=== PATIENT | female | born 1975 | race Caucasian/White ===

== ENCOUNTER 2016-12-31 12:05 | Emergency (ER) | payer OTHER ==
[~2016-12-31] VITALS: Ht 160 cm; Wt 93.9 kg
[2016-12-31 12:10] VITALS: BP 138/85
--- NOTE | 2016-12-31 13:11 | PHYS DOC ---
Past Medical History Past Medical History: Other Additional Past Medical Histor: GEST DM Past Surgical History: , Tubal ligation Alcohol Use: None Drug Use: None Adult General Chief Complaint Chief Complaint: LOWER EXT PAIN HPI HPI Patient is a 41 year old female who presents with right calf pain that began yesterday. Patient stated the pain is worse on ambulation. Patient states he was seen by the PCP who sent her to the ED for evaluation for possible blood clot. Patient denies any fever. Denies any chest pain or shortness of breath. Denies any significant medical history apart from gestational diabetes a couple years ago when she was with twins. Patient denies any hormone use. Denies any recent hospitalizations, denies any recent air or long distance Travel. Denies any numbness or tingling to the right lower extremity. Denies any injury. PCP Dr. Mesa Review of Systems Review of Systems Constitutional: Denies fever or chills [] Eyes: Denies change in visual acuity, redness, or eye pain [] HENT: Denies nasal congestion or sore throat [] Respiratory: Denies cough or shortness of breath [] Cardiovascular: No additional information not addressed in HPI [] GI: Denies abdominal pain, nausea, vomiting, bloody stools or diarrhea [] : Denies dysuria or hematuria [] Musculoskeletal: right calf pain Integument: Denies rash or skin lesions [] Neurologic: Denies headache, focal weakness or sensory changes [] Endocrine: Denies polyuria or polydipsia [] Current Medications Current Medications Current Medications Medications (Trade) Dose Ordered Sig/Herbie Start Time Stop Time Status Last Admin Dose Admin Acetaminophen/ Hydrocodone Bitart (Lortab 5/325) 1 tab 1X ONCE 12/31/16 13:30 12/31/16 13:31 DC 12/31/16 13:18 1 TAB Cyclobenzaprine HCl (Flexeril) 10 mg 1X ONCE 12/31/16 13:30 12/31/16 13:31 DC 12/31/16 13:18 10 MG Allergies Allergies Allergies Coded Allergies Type Severity Reaction Last Updated Verified Penicillins Allergy Severe Anaphylaxis 12/31/16 Yes latex Allergy Intermediate 12/31/16 Yes milk Allergy Intermediate 12/31/16 Yes Physical Exam Physical Exam Constitutional: Well developed, well nourished, no acute distress, non-toxic appearance. [] HENT: Normocephalic, atraumatic, bilateral external ears normal, oropharynx moist, no oral exudates, nose normal. [] Eyes: PERRLA, EOMI, conjunctiva normal, no discharge. [] Neck: Normal range of motion, no tenderness, supple, no stridor. [] Cardiovascular:Heart rate regular rhythm, no murmur [] Lungs & Thorax: Bilateral breath sounds clear to auscultation [] Abdomen: Bowel sounds normal, soft, no tenderness, no masses, no pulsatile masses. [] Skin: Warm, dry, no erythema, no rash. [] Back: No tenderness, no CVA tenderness. [] Extremities: Right calf with no obvious edema or ecchymosis. No tenderness on palpation of the right calf but positive Homans sign to the right lower extremity. +2 right pedal pulse. Cap refill less than 2 seconds the right toes. Sensation intact to the right lower extremity. Neurologic: Alert and oriented X 3, normal motor function, normal sensory function, no focal deficits noted. [] Psychologic: Affect normal, judgement normal, mood normal. [] Current Patient Data Vital Signs Vital Signs Date Time Temp Pulse Resp B/P (MAP) Pulse Ox O2 Delivery O2 Flow Rate FiO2 12/31/16 13:18 16 Room Air 12/31/16 12:10 98.1 60 100 98.1 EKG EKG [] Radiology/Procedures Radiology/Procedures [] Course & Med Decision Making Course & Med Decision Making Pertinent Labs and Imaging studies reviewed. (See chart for details) Patient is in the ED with a right calf pain since yesterday. No known injury. She was sent to the ED to be evaluated for DVT by the PCP. Right lowr extremity venous Doppler interpreted by radiologist is negative for any acute findings. Results are provided to patient. She was reassured. She was discharged with Robaxin, gabapentin and naproxen. Ice elevation encouraged. Follow-up with PCP as soon as she can. Dragon Disclaimer Dragon Disclaimer This electronic medical record was generated, in whole or in part, using a voice recognition dictation system. Departure Departure Impression: Primary Impression: Right calf pain Disposition: 01 HOME, SELF-CARE Condition: STABLE Referrals: NI LARA APRN (PCP) RONALD MESA MD follow up with your doctor as soon as you can Patient Instructions: Musculoskeletal Pain Additional Instructions: You were seen for right calf pain. Your venous Doppler of the right lower extremity was negative for any acute findings. Follow-up with your own doctor as soon as possible. Take the prescribed pain medicine as needed for pain. Scripts Gabapentin (GABAPENTIN) 300 Mg Capsule 300 MG PO TID, #30 CAP Prov: TRINIDAD BRUNO APRN 12/31/16 Methocarbamol (ROBAXIN) 500 Mg Tablet 1 TAB PO TID, #30 TAB Prov: TRINIDAD BRUNO APRN 12/31/16 Naproxen (NAPROXEN) 500 Mg Tablet. 1 TAB PO BID, #60 TAB 2 Refills Prov: TRINIDAD BRUNO APRN 12/31/16 TRINIDAD BRUNO APRN Dec 31, 2016 13:11
[2016-12-31] MEDS ORDERED: CYCLOBENZAPRINE 10 MG TABLET. PO ONE (13:30)
[2016-12-31] MEDS ORDERED: HYDROcodone/APAP 5/325MG 1 TAB TABLET PO ONE (13:30)
--- NOTE | 2016-12-31 14:16 | RAD ---
Right lower extremity venous ultrasound, 12/31/2016 : History: Right leg pain Duplex evaluation including grayscale, color flow and spectral Doppler analysis was performed. The femoral and popliteal veins show no filling defects to suggest DVT. The visualized deep veins in the right calf are unremarkable. IMPRESSION: There is no sonographic evidence of deep vein thrombosis in the right lower extremity
[2016-12-31] MEDS ORDERED: METH-37 PO (14:31)
[2016-12-31] MEDS ORDERED: NAPR500T8 PO (14:31)
[2016-12-31] MEDS ORDERED: GABA-586 PO (14:31)
== END 2016-12-31 14:39 | disposition home or self-care (01) ==
LOC: ER 12:05
DX: M79.661 Pain in right lower leg (principal); E11.9 Type 2 diabetes mellitus without complications; Z88.0 Allergy status to penicillin; Z91.040 Latex allergy status; Z91.011 Allergy to milk products; Z98.51 Tubal ligation status; X58.XXXA Exposure to other specified factors, initial encounter; Y93.89 Activity, other specified; Y99.8 Other external cause status; Y92.89 Other specified places as the place of occurrence of the external cause
CPT/HCPCS: 93971; 99284-25

== ENCOUNTER → 2017-01-05 | Outpatient (CLI) | payer OTHER ==
[2016-12-31 12:10] VITALS: BP 138/85
[~2017-01-05] MED LIST: GABA-586 PO; METH-37 PO; NAPR500T8 PO
--- NOTE | 2017-01-05 11:51 | KCIC ---
Limited right knee ultrasound dated 01/05/2017. No comparison available. CLINICAL INDICATION: Right knee pain. FINDINGS: Sonographic imaging was performed over the posterior right knee The area of pain. There is a complex popliteal cyst that measures up to 3.6 cm craniocaudal dimension. No additional soft tissue abnormality. IMPRESSION: Small complex popliteal cyst. Electronically signed by: Kenyon Alejandro MD (01/05/2017 11:47 AM) [facility]
== END | disposition home or self-care (01) ==
LOC: KCIC US 10:52
PROVIDERS: ATTEND Nurse Practitioner Family
DX: M71.21 Synovial cyst of popliteal space [Baker], right knee (principal)
CPT/HCPCS: 76881

== ENCOUNTER 2019-05-03 10:14 | Emergency (ER) | payer OTHER ==
[~2019-05-03] VITALS: Ht 157.5 cm; Wt 91.6 kg
[~2019-05-03 10:14] MED LIST changes: -GABA-586 PO; +GABA300C18 PO
[2019-05-03 10:24] VITALS: BP 134/74
[2019-05-03] MEDS ORDERED: diphenhydrAMINE HCL 25 MG CAPSULE PO ONE (11:00)
[2019-05-03] MEDS ORDERED: DEXAMETHASONE SOD PHOS 20 MG/5 ML VIAL. PO ONE (11:00)
[2019-05-03] MEDS ORDERED: DOXY100T PO (11:27)
--- NOTE | 2019-05-03 11:28 | PHYS DOC ---
Past Medical History Past Medical History: Hypothyroid, Other Additional Past Medical Histor: GEST DM, ECZEMA Past Surgical History: , Tubal ligation Alcohol Use: None Drug Use: None Adult General Chief Complaint Chief Complaint: ALLERGIC REACTION HPI HPI Patient is a 44 year old female who presents to the emergency department with complaints of itching all over and hive-like rash on her lower extremities after taking clindamycin for the last 3 days. Patient states it also feels like she is having hard time swallowing at times. She denies any shortness of breath, wheezing, nausea, vomiting, chest pain, palpitations or fever. Patient states she was prescribed clindamycin by her dentist for a right upper dental infection. Pt's LMP was last week, she reports hx of BTL and denies . All other ROS is neg unless otherwise noted in HPI. Review of Systems Review of Systems See Above Current Medications Current Medications Current Medications Medications (Trade) Dose Ordered Sig/Herbie Start Time Stop Time Status Last Admin Dose Admin Dexamethasone Sodium Phosphate (Decadron) 10 mg 1X ONCE 05/03/19 11:00 05/03/19 11:01 DC 05/03/19 11:26 10 MG Diphenhydramine HCl (Benadryl) 50 mg 1X ONCE 05/03/19 11:00 05/03/19 11:01 DC 05/03/19 11:26 50 MG Allergies Allergies Allergies Coded Allergies Type Severity Reaction Last Updated Verified Penicillins Allergy Severe Anaphylaxis 12/31/16 Yes latex Allergy Intermediate 12/31/16 Yes milk Allergy Intermediate 12/31/16 Yes Physical Exam Physical Exam See Above Constitutional: Well developed, well nourished, no acute distress, non-toxic appearance. [] HENT: Normocephalic, atraumatic, bilateral external ears normal, oropharynx moist, no oral exudates, nose normal; R upper dental infection with gingival edema and erythema, no visible abscess [] Eyes: PERRLA, EOMI, conjunctiva normal, no discharge. [] Neck: Normal range of motion, no tenderness, supple, no stridor. [] Cardiovascular:Heart rate regular rhythm, no murmur [] Lungs & Thorax: Bilateral breath sounds clear to auscultation [] Skin: Warm, dry, Hives noted to bilateral upper legs and lower abdomen Back: No tenderness Extremities: No cyanosis, ROM intact, no edema. [] Neurologic: Alert and oriented X 3, no focal deficits noted. [] Psychologic: Affect normal, judgement normal, mood normal. [] Current Patient Data Vital Signs Vital Signs Date Time Temp Pulse Resp B/P (MAP) Pulse Ox O2 Delivery O2 Flow Rate FiO2 05/03/19 10:24 98.0 81 16 134/74 (94) 98 Room Air 98.0 EKG EKG [] Radiology/Procedures Radiology/Procedures [] Course & Med Decision Making Course & Med Decision Making Pertinent Labs and Imaging studies reviewed. (See chart for details) Patient is a 44-year-old female who presented to the emergency room with concern s of an allergic reaction clindamycin. On exam patient is noted to have a right upper dental infection that she has been taking the clindamycin for. Patient was given 50 mg of by mouth Benadryl and 10 mg of by mouth Decadron while in the emergency department. Prescription written for doxycycline 100 mg by mouth twice a day 5 days. Patient instructed to call her dentist in notify them of the allergy to clindamycin and a new prescription for doxycycline. Patient verbalized an understanding of home care, medications, follow-up, and return to ED instructions and was in agreement with the plan of care. [] Dragon Disclaimer Dragon Disclaimer This electronic medical record was generated, in whole or in part, using a voice recognition dictation system. Departure Departure Impression: Primary Impression: Allergic reaction caused by a drug Additional Impression: Infected dental caries Disposition: HOME, SELF-CARE Condition: STABLE Referrals: NI LARA APRN (PCP) Patient Instructions: Dental Caries, Drug Allergy, Klne-[id number] Additional Instructions: Stop taking the clindamycin was prescribed. Fill the prescription that was provided to you for doxycycline. You can take Benadryl every 6 hours at home as needed for itching. Return to the ER if symptoms worsen. Call your dentist in notify them of your allergic reaction and need for follow-up. Scripts Doxycycline Hyclate (DOXYCYCLINE HYCLATE) 100 Mg Tablet 1 TAB PO BID for 5 Days, #10 TAB 0 Refills Prov: ADRIANA RICH APRN 05/03/19 Problem Qualifiers Primary Impression: Allergic reaction caused by a drug Encounter type: initial encounter Qualified Codes: T78.40XA - Allergy, unspecified, initial encounter ADRIANA RICH CLAIM TECHNICIAN May 03, 2019 11:27
[2019-05-04] MEDS ORDERED: LEVO50TA PO (20:45)
[2019-05-05] MEDS ORDERED: PANT40TA77 PO (12:21)
== END 2019-05-03 11:36 | disposition home or self-care (01) ==
LOC: ER 10:14
DX: T36.8X5A Adverse effect of other systemic antibiotics, initial encounter (principal); K04.7 Periapical abscess without sinus; E03.9 Hypothyroidism, unspecified; Z88.0 Allergy status to penicillin; Z91.040 Latex allergy status; Z91.011 Allergy to milk products; Y92.89 Other specified places as the place of occurrence of the external cause
CPT/HCPCS: 99283; J1100; Q0163

== ENCOUNTER 2019-05-04 14:45 | Inpatient (IN) | payer OTHER ==
[~2019-05-04] VITALS: Ht 157.5 cm; Wt 98.2 kg
[~2019-05-04 14:45] MED LIST changes: +DOXY100T PO
[2019-05-04] MEDS ORDERED: IV NORMAL SALINE 1000ML BAG 1,000 ML IV SCH (15:03)
[2019-05-04] MEDS ORDERED: ONDANSETRON PF 4 MG/2 ML VIAL. IV ONE (15:15)
[2019-05-04] MEDS ORDERED: KETOROLAC 30 MG/ML VIAL. IVP ONE (15:15)
[2019-05-04 15:17] LABS: BASO # 0.1 x10^3/uL (0.0-0.2); BASO % 0 % (0-3); EOS % 0 % (0-3); HEMATOCRIT 34.3 % (36.0-47.0); LYMPH # 2.2 x10^3/uL (1.0-4.8); LYMPH % 16 % (24-48); MEAN CORPUSCULAR HEMOGLOBIN 24 pg (25-35); MEAN CORPUSCULAR HGB CONC 32 g/dL (31-37); MEAN CORPUSCULAR VOLUME 73 fL (79-100); MONO # 0.6 x10^3/uL (0.0-1.1); MONO % 5 % (0-9); NEUT # 11.1 x10^3/uL (1.8-7.7); NEUT % 79 % (31-73); PLATELET COUNT 412 x10^3/uL (140-400); RED BLOOD COUNT 4.69 x10^6/uL (3.50-5.40); RED CELL DISTRIBUTION WIDTH 15.9 % (11.5-14.5)
[2019-05-04 15:27] LABS: CALCIUM 8.9 mg/dL (8.5-10.1); CREATININE 0.8 mg/dL (0.6-1.0); GFR 78.7; POTASSIUM 3.3 mmol/L (3.5-5.1)
--- NOTE | 2019-05-04 15:27 | RAD ---
PORTABLE CHEST 1V History: Chest pain Comparison: None. Findings: Single view of the chest is submitted. There is no infiltrate, pneumothorax, or effusion. The pericardial cardiac silhouette is within normal limits in size. Impression: 1. There is no radiographic evidence of acute cardiopulmonary disease. Electronically signed by: Pérez Salazar MD (05/04/2019 3:24 PM) [facility]
[2019-05-04 15:33] LABS: ALBUMIN 3.7 g/dL (3.4-5.0); ALBUMIN/GLOBULIN RATIO 0.8 (1.0-1.7); MAGNESIUM 1.8 mg/dL (1.8-2.4); TOTAL BILIRUBIN 0.4 mg/dL (0.2-1.0); TOTAL PROTEIN 8.3 g/dL (6.4-8.2)
--- NOTE | 2019-05-04 17:27 | PHYS DOC ---
Past Medical History Past Medical History: Hypothyroid, Other Additional Past Medical Histor: GEST DM, ECZEMA Past Surgical History: , Tubal ligation Alcohol Use: None Drug Use: None Adult General Chief Complaint Chief Complaint: CHEST WALL PAIN HPI HPI Patient is a 44-year-old female who presents with complaint of anterior chest discomfort as well as epigastric discomfort that started earlier today. She describes pain as sharp and stabbing in nature and states that pain is worsened with exertion. She rates pain at a 9 out of 10. She does report some nausea but is had no vomiting. Patient was seen here last night and the emergency room and had similar symptoms and had been discharged home. [] Review of Systems Review of Systems Constitutional: Denies fever or chills [] Respiratory: Denies cough or shortness of breath [] Cardiovascular: No additional information not addressed in HPI [] GI: [place] of epigastric discomfort with nausea. Denies vomiting or diarrhea [] Musculoskeletal: Denies back pain or joint pain [] Integument: Denies rash or skin lesions [] Neurologic: Denies headache, focal weakness or sensory changes [] All other systems were reviewed and found to be within normal limits, except as documented in this note. Current Medications Current Medications Current Medications Medications (Trade) Dose Ordered Sig/Herbie Start Time Stop Time Status Last Admin Dose Admin Ketorolac Tromethamine (Toradol 30mg Vial) 30 mg 1X ONCE 05/04/19 15:15 05/04/19 15:16 DC 05/04/19 15:23 30 MG Ondansetron HCl (Zofran) 4 mg 1X ONCE 05/04/19 15:15 05/04/19 15:16 DC 05/04/19 15:21 4 MG Pantoprazole Sodium (PROTONIX VIAL for IV PUSH) 40 mg 1X ONCE 05/04/19 18:00 05/04/19 18:01 DC Sodium Chloride 1,000 ml @ 1,000 mls/hr Q1H 05/04/19 15:03 05/04/19 16:02 DC 05/04/19 15:24 1,000 MLS/HR Allergies Allergies Allergies Coded Allergies Type Severity Reaction Last Updated Verified Penicillins Allergy Severe Anaphylaxis 12/31/16 Yes latex Allergy Intermediate 12/31/16 Yes milk Allergy Intermediate 12/31/16 Yes Physical Exam Physical Exam Constitutional: Well developed, well nourished, in mild distress, non-toxic appearance. [] HENT: Normocephalic, atraumatic, bilateral external ears normal, oropharynx moist, no oral exudates, nose normal. [] Eyes: PERRLA, EOMI, conjunctiva normal, no discharge. [] Neck: Normal range of motion, no tenderness, supple. [] Cardiovascular: Regular rate and rhythm[] Lungs & Thorax: Bilateral breath sounds clear to auscultation [] Abdomen: Bowel sounds normal, soft, no tenderness. [] Skin: Warm, dry, no erythema, no rash. [] Extremities: No tenderness, no cyanosis, no clubbing, ROM intact. [] Neurologic: Alert and oriented X 3, no focal deficits noted. [] Current Patient Data Vital Signs Vital Signs Date Time Temp Pulse Resp B/P (MAP) Pulse Ox O2 Delivery O2 Flow Rate FiO2 05/04/19 14:48 97.5 74 16 132/87 (102) 100 Room Air 97.5 Lab Values Laboratory Tests Test 05/04/19 15:05 White Blood Count 14.0 x10^3/uL (4.0-11.0) H Red Blood Count 4.69 x10^6/uL (3.50-5.40) Hemoglobin 11.0 g/dL (12.0-15.5) L Hematocrit 34.3 % (36.0-47.0) L Mean Corpuscular Volume 73 fL (79-100) L Mean Corpuscular Hemoglobin 24 pg (25-35) L Mean Corpuscular Hemoglobin Concent 32 g/dL (31-37) Red Cell Distribution Width 15.9 % (11.5-14.5) H Platelet Count 412 x10^3/uL (140-400) H Neutrophils (%) (Auto) 79 % (31-73) H Lymphocytes (%) (Auto) 16 % (24-48) L Monocytes (%) (Auto) 5 % (0-9) Eosinophils (%) (Auto) 0 % (0-3) Basophils (%) (Auto) 0 % (0-3) Neutrophils # (Auto) 11.1 x10^3/uL (1.8-7.7) H Lymphocytes # (Auto) 2.2 x10^3/uL (1.0-4.8) Monocytes # (Auto) 0.6 x10^3/uL (0.0-1.1) Eosinophils # (Auto) 0.0 x10^3/uL (0.0-0.7) Basophils # (Auto) 0.1 x10^3/uL (0.0-0.2) Sodium Level 136 mmol/L (136-145) Potassium Level 3.3 mmol/L (3.5-5.1) L Chloride Level 99 mmol/L (98-107) Carbon Dioxide Level 28 mmol/L (21-32) Anion Gap 9 (6-14) Blood Urea Nitrogen 11 mg/dL (7-20) Creatinine 0.8 mg/dL (0.6-1.0) Estimated GFR (Cockcroft-Gault) 78.7 BUN/Creatinine Ratio 14 (6-20) Glucose Level 139 mg/dL (70-99) H Calcium Level 8.9 mg/dL (8.5-10.1) Magnesium Level 1.8 mg/dL (1.8-2.4) Total Bilirubin 0.4 mg/dL (0.2-1.0) Aspartate Amino Transferase (AST) 46 U/L (15-37) H Alanine Aminotransferase (ALT) 66 U/L (14-59) H Alkaline Phosphatase 62 U/L (46-116) Troponin I Quantitative < 0.017 ng/mL (0.000-0.055) GM-Ydm-N-Type Natriuretic Peptide 129 pg/mL (0-124) H Total Protein 8.3 g/dL (6.4-8.2) H Albumin 3.7 g/dL (3.4-5.0) Albumin/Globulin Ratio 0.8 (1.0-1.7) L Lipase 68 U/L (73-393) L Laboratory Tests 05/04/19 15:05 Laboratory Tests 05/04/19 15:05 EKG EKG [] Interpretation Time: EKG demonstrates normal sinus rhythm with rate of 73. There are nonspecific ST/T-wave changes Radiology/Procedures Radiology/Procedures [] Impressions: PROCEDURE: PORTABLE CHEST 1V PORTABLE CHEST 1V History: Chest pain Comparison: None. Findings: Single view of the chest is submitted. There is no infiltrate, pneumothorax, or effusion. The pericardial cardiac silhouette is within normal limits in size. Impression: 1. There is no radiographic evidence of acute cardiopulmonary disease. Electronically signed by: Pérez Salazar MD (05/04/2019 3:24 PM) [facility] Course & Med Decision Making Course & Med Decision Making Pertinent Labs and Imaging studies reviewed. (See chart for details) [] Dragon Disclaimer Dragon Disclaimer This electronic medical record was generated, in whole or in part, using a voice recognition dictation system. Departure Departure Impression: Primary Impression: Chest pain Disposition: ADMITTED INPATIENT Admitting Physician: MIGUEL A (Dr. Burns) Condition: IMPROVED Referrals: NI LARA APRN (PCP) Problem Qualifiers Primary Impression: Chest pain Chest pain type: unspecified Qualified Codes: R07.9 - Chest pain, unspecified YESIKA ROSS Jr. DO May 04, 2019 17:27
[2019-05-04] MEDS ORDERED: PANTOPRAZOLE IV PUSH 40 MG VIAL. IVP ONE (18:00)
--- NOTE | 2019-05-04 18:00 | PDOC1 ---
History and Physical Date of Admission Date of Admission DATE: 05/04/19 TIME: 18:00 Identification/Chief Complaint Chief Complaint Chest pain Source Source: Patient History of Present Illness History of Present Illness Ms Taylor is a 44-year-old female w/ PMHx Hypothyroid, eczema, gestational diabetes who presents with complaint of anterior chest discomfort as well as epigastric discomfort that started earlier today. She describes pain as sharp and stabbing in nature and states that pain is worsened with exertion. She rates pain at a 9 out of 10. She does report some nausea and decided to come to the ED when she started vomiting. Patient was seen here last night and the emergency room and had been treated for a completely different problem, she had noted a diffuse urticarial rash after she had been taking a few doses of clindamycin prescribed by her dentist. She was given a script for doxycycline and high dose steroids and discharged home. She has also been taking NSAIDs, ibuprofen for menstrual pains and notes her stools have been darker recently. She is worried because her father at age 48 of early CAD, he also had DM and HTN. In ED had EKG that was NSR with non-specific ST segmental changes. Glucose 139. WBC 14K, Hb 11 with MCV 73, K 3.3 and mild elevation in her AST and ALT. Lipase WNL. CXR negative. She is being admitted for further dx and treatment. Past Medical History Cardiovascular: No pertinent hx Pulmonary: No pertinent hx GI: No pertinent hx Heme/Onc: No pertinent hx Hepatobiliary: No pertinent hx Psych: No pertinent hx Rheumatologic: No pertinent hx Infectious disease: No pertinent hx ENT: No pertinent hx Renal/: No pertinent hx Endocrine: Hypothyroidism Dermatology: Eczema Grav: 3 Para: 4 Past Surgical History Past Surgical History: , Tubal Ligation Family History Family History: Diabetes, High Cholestrol, Hypertension Social History Smoke: No ALCOHOL: none Drugs: None Current Problem List Problem List Problems Medical Problems: (1) Chest pain Status: Acute Current Medications Current Medications Current Medications Sodium Chloride 1,000 ml @ 1,000 mls/hr Q1H IV Last administered on 05/04/19at 15:24; Start 05/04/19 at 15:03; Stop 05/04/19 at 16:02; Status DC Ketorolac Tromethamine (Toradol 30mg Vial) 30 mg 1X ONCE IVP Last administered on 05/04/19at 15:23; Start 05/04/19 at 15:15; Stop 05/04/19 at 15:16; Status DC Ondansetron HCl (Zofran) 4 mg 1X ONCE IV Last administered on 05/04/19at 15:21; Start 05/04/19 at 15:15; Stop 05/04/19 at 15:16; Status DC Active Scripts Active Doxycycline Hyclate 100 Mg Tablet 1 Tab PO BID 5 Days Gabapentin (Gabapentin) 300 Mg Capsule 300 Mg PO TID Robaxin (Methocarbamol) 500 Mg Tablet 1 Tab PO TID Naproxen 500 Mg Tablet.dr 1 Tab PO BID Allergies Allergies: Coded Allergies: Penicillins (Verified Allergy, Severe, Anaphylaxis, 12/31/16) latex (Verified Allergy, Intermediate, 12/31/16) milk (Verified Allergy, Intermediate, 12/31/16) ROS General: YES: Fatigue, Malaise; No: Chills, Night Sweats, Appetite, Other PSYCHOLOGICAL ROS: YES: Anxiety; No: Behavioral Disorder, Concentration difficultie, Decreased libido, Depression, Disorientation, Hallucinations, Hostility, Irritablity, Memory difficulties, Mood Swings, Obsessive thoughts, Physical abuse, Sexual abuse, Sleep disturbances, Suicidal ideation, Other Eyes: No Blurry vision, No Decreased vision, No Double vision, No Dry eyes, No Excessive tearing, No Eye Pain, No Itchy Eyes, No Loss of vision, No Photophobia, No Scotomata, No Uses contacts, No Uses glasses, No Other HEENT: No: Heacaches, Visual Changes, Hearing change, Nasal congestion, Nasal discharge, Oral lesions, Sinus pain, Sore Throat, Epistaxis, Sneezing, Snoring, Tinnitus, Vertigo, Vocal changes, Other ALLERGY AND IMMUNOLOGY: No: Hives, Insect Bite Sensitivity, Itchy/Watery Eyes, Nasal Congestion, Post Nasal Drip, Seasonal Allergies, Other Hematological and Lymphatic: No: Bleeding Problems, Blood Clots, Blood Transfusions, Brusing, Night Sweats, Pallor, Swollen Lymph Nodes, Other ENDOCRINE: No: Breast Changes, Galactorrhea, Hair Pattern Changes, Hot Flashes, Malaise/lethargy, Mood Swings, Palpitations, Polydipsia/polyuria, Skin Changes, Temperature Intolerance, Unexpected Weight Changes, Other Breast: No New/Changing Breast Lumps, No Nipple changes, No Nipple discharge, No Other Respiratory: No: Cough, Hemoptysis, Orthopnea, Pleuritic Pain, Shortness of breath, SOB with excertion, Sputum Changes, Stridor, Tachypnea, Wheezing, Other Cardiovascular: yes Chest Pain; No Palpitations, No Orthopnea, No Paroxysmal Noc. Dyspnea, No Edema, No Lt Headedness, No Other Gastrointestinal: Yes Nausea, Yes Vomiting, Yes Abdominal Pain; No Diarrhea, No Constipation, No Melena, No Hematochezia, No Other Genitourinary: No Dysuria, No Frequency, No Incontinence, No Hematuria, No Retention, No Discharge, No Urgency, No Pain, No Flank Pain, No Other, No , No , No , No , No , No , No Musculoskeletal: No Gait Disturbance, No Joint Pain, No Joint Stiffness, No Joint Swelling, No Muscle Pain, No Muscular Weakness, No Pain In:, No Swelling In:, No Other Neurological: No Behavorial Changes, No Bowel/Bladder ControlChng, No Confusion, No Dizziness, No Gait Disturbance, No Headaches, No Impaired Coord/balance, No Memory Loss, No Numbness/Tingling, No Seizures, No Speech Problems, No Tremors, No Visual Changes, No Weakness, No Other Skin: Yes Dry Skin, Yes Eczema, Yes Rash; No Hair Changes, No Lumps, No Mole Changes, No Mottling, No Nail Changes, No Pruritus, No Skin Lesion Changes, No Other, No Acne Physical Exam General: Alert, Oriented X3, Cooperative, mild distress HEENT: Atraumatic, PERRLA, EOMI, Mucous membr. moist/pink Lungs: Clear to auscultation, Normal air movement Heart: S1S2, RRR, no thrills, no rubs, no gallops, no murmurs Abdomen: Normal bowel sounds, Soft, No hepatosplenomegaly, No masses, Other (epigastric tenderness) Extremities: No clubbing, No cyanosis, No edema, Normal pulses, No tenderness/swelling Skin: No rashes, No breakdown, No significant lesion Neuro: Normal gait, Normal speech, Strength at 5/5 X4 ext, Normal tone, Sensation intact, Cranial nerves 3-12 NL, Reflexes 2+ Psych/Mental Status: Mental status NL, Mood NL Vitals Vitals Vital Signs Date Time Temp Pulse Resp B/P (MAP) Pulse Ox O2 Delivery O2 Flow Rate FiO2 05/04/19 14:48 97.5 74 16 132/87 (102) 100 Room Air 97.5 Labs Labs Laboratory Tests Test 05/04/19 15:05 White Blood Count 14.0 x10^3/uL (4.0-11.0) Red Blood Count 4.69 x10^6/uL (3.50-5.40) Hemoglobin 11.0 g/dL (12.0-15.5) Hematocrit 34.3 % (36.0-47.0) Mean Corpuscular Volume 73 fL (79-100) Mean Corpuscular Hemoglobin 24 pg (25-35) Mean Corpuscular Hemoglobin Concent 32 g/dL (31-37) Red Cell Distribution Width 15.9 % (11.5-14.5) Platelet Count 412 x10^3/uL (140-400) Neutrophils (%) (Auto) 79 % (31-73) Lymphocytes (%) (Auto) 16 % (24-48) Monocytes (%) (Auto) 5 % (0-9) Eosinophils (%) (Auto) 0 % (0-3) Basophils (%) (Auto) 0 % (0-3) Neutrophils # (Auto) 11.1 x10^3/uL (1.8-7.7) Lymphocytes # (Auto) 2.2 x10^3/uL (1.0-4.8) Monocytes # (Auto) 0.6 x10^3/uL (0.0-1.1) Eosinophils # (Auto) 0.0 x10^3/uL (0.0-0.7) Basophils # (Auto) 0.1 x10^3/uL (0.0-0.2) Sodium Level 136 mmol/L (136-145) Potassium Level 3.3 mmol/L (3.5-5.1) Chloride Level 99 mmol/L (98-107) Carbon Dioxide Level 28 mmol/L (21-32) Anion Gap 9 (6-14) Blood Urea Nitrogen 11 mg/dL (7-20) Creatinine 0.8 mg/dL (0.6-1.0) Estimated GFR (Cockcroft-Gault) 78.7 BUN/Creatinine Ratio 14 (6-20) Glucose Level 139 mg/dL (70-99) Calcium Level 8.9 mg/dL (8.5-10.1) Magnesium Level 1.8 mg/dL (1.8-2.4) Total Bilirubin 0.4 mg/dL (0.2-1.0) Aspartate Amino Transf (AST/SGOT) 46 U/L (15-37) Alanine Aminotransferase (ALT/SGPT) 66 U/L (14-59) Alkaline Phosphatase 62 U/L (46-116) Troponin I Quantitative < 0.017 ng/mL (0.000-0.055) XD-Dtn-M-Type Natriuretic Peptide 129 pg/mL (0-124) Total Protein 8.3 g/dL (6.4-8.2) Albumin 3.7 g/dL (3.4-5.0) Albumin/Globulin Ratio 0.8 (1.0-1.7) Lipase 68 U/L (73-393) Laboratory Tests Test 05/04/19 15:05 White Blood Count 14.0 x10^3/uL (4.0-11.0) Red Blood Count 4.69 x10^6/uL (3.50-5.40) Hemoglobin 11.0 g/dL (12.0-15.5) Hematocrit 34.3 % (36.0-47.0) Mean Corpuscular Volume 73 fL (79-100) Mean Corpuscular Hemoglobin 24 pg (25-35) Mean Corpuscular Hemoglobin Concent 32 g/dL (31-37) Red Cell Distribution Width 15.9 % (11.5-14.5) Platelet Count 412 x10^3/uL (140-400) Neutrophils (%) (Auto) 79 % (31-73) Lymphocytes (%) (Auto) 16 % (24-48) Monocytes (%) (Auto) 5 % (0-9) Eosinophils (%) (Auto) 0 % (0-3) Basophils (%) (Auto) 0 % (0-3) Neutrophils # (Auto) 11.1 x10^3/uL (1.8-7.7) Lymphocytes # (Auto) 2.2 x10^3/uL (1.0-4.8) Monocytes # (Auto) 0.6 x10^3/uL (0.0-1.1) Eosinophils # (Auto) 0.0 x10^3/uL (0.0-0.7) Basophils # (Auto) 0.1 x10^3/uL (0.0-0.2) Sodium Level 136 mmol/L (136-145) Potassium Level 3.3 mmol/L (3.5-5.1) Chloride Level 99 mmol/L (98-107) Carbon Dioxide Level 28 mmol/L (21-32) Anion Gap 9 (6-14) Blood Urea Nitrogen 11 mg/dL (7-20) Creatinine 0.8 mg/dL (0.6-1.0) Estimated GFR (Cockcroft-Gault) 78.7 BUN/Creatinine Ratio 14 (6-20) Glucose Level 139 mg/dL (70-99) Calcium Level 8.9 mg/dL (8.5-10.1) Magnesium Level 1.8 mg/dL (1.8-2.4) Total Bilirubin 0.4 mg/dL (0.2-1.0) Aspartate Amino Transf (AST/SGOT) 46 U/L (15-37) Alanine Aminotransferase (ALT/SGPT) 66 U/L (14-59) Alkaline Phosphatase 62 U/L (46-116) Troponin I Quantitative < 0.017 ng/mL (0.000-0.055) EP-Udc-X-Type Natriuretic Peptide 129 pg/mL (0-124) Total Protein 8.3 g/dL (6.4-8.2) Albumin 3.7 g/dL (3.4-5.0) Albumin/Globulin Ratio 0.8 (1.0-1.7) Lipase 68 U/L (73-393) Images Images CXR - no cardiopulmonary abnormalities VTE Prophylaxis Ordered VTE Prophylaxis Devices: No VTE Pharmacological Prophylaxi: No Assessment/Plan Assessment/Plan A/P Chest pain - seems more likely GI related. Concerning hx with her father's early . Will trend troponins Nausea and vomiting - more likely intolerance of yet another antibiotic given her symptoms are classic doxycycline side effects Epigastric pain - possibly gastritis from NSAIDs, high dose steroids and conco mitant doxycycline dosing. Trial PPI for 30 days. Eczema - cont cream Hypothyroidism - cont levothyroxine Dental caries - would hold off on antibiotics for now, has had side effects from two already Microcytic anemia - will check iron studies. She previously has not tolerated oral iron therapy, could benefit from IV replacement Hypokalemia - will replace, likely from vomiting, GI losses Hyperglycemia - had gestational diabetes with no further testing Hypothyroidism - cont synthroid FEN - General diet PPX - ambulatory, low risk FULL CODE Dispo - inpatient for nausea and vomiting ALEJANDRINA CULLEN MD May 04, 2019 18:00
[2019-05-04] MEDS ORDERED: ONDANSETRON PF 4 MG/2 ML VIAL. IV PRN (18:15)
[2019-05-04] MEDS ORDERED: MORPHINE SULFATE 2 MG/ML VIAL. IV PRN (18:15)
[2019-05-04 19:14] VITALS: BP 119/69
--- NOTE | 2019-05-04 20:30 | NUR ---
A 44 Y.O. FEMALE ADMITTED WITH CHEST PAIN, ADMISSION PACKET GIVEN, PT DENIES PAIN AT THIS TIME, ASSESSMENT COMPLETE, CALLLIGHT IN PLACE, WILL CONT TO MONITOR PT STATUS AND SAFETY. PMRN
[2019-05-04] MEDS ORDERED: POTASSIUM CHLORIDE 20 MEQ TABLET.ER. PO ONE (20:45)
[2019-05-04] MEDS ORDERED: LEVO50TA PO (20:45)
[2019-05-04 22:17] VITALS: BP 108/57
[2019-05-05 03:27] VITALS: BP 113/60
[2019-05-05 03:54] LABS: BILIRUBIN,URINE NEGATIVE (NEG); CLARITY,URINE CLOUDY; COLOR,URINE AMBER; NITRITE,URINE NEGATIVE (NEG); PH,URINE 5.5; PROTEIN,URINE NEGATIVE (NEG-TRACE); UROBILINOGEN,URINE 0.2 mg/dL (0.2 mg/dL)
[2019-05-05 03:58] LABS: SQUAMOUS EPITHELIAL CELL,UR MANY /LPF
[2019-05-05 03:59] LABS: BACTERIA,URINE MODERATE /HPF (0-FEW); RBC,URINE RARE /HPF (0-2)
[2019-05-05 04:39] LABS: CHOLESTEROL/HDL RATIO 5.3
[2019-05-05] MEDS ORDERED: IRON SUCROSE COMPLEX 500 MG in IV NORMAL SALINE 250ML 250 ML IV ONE (05:00)
[2019-05-05] MEDS ORDERED: LEVOTHYROXINE 50 MCG TABLET PO SCH (06:00)
[2019-05-05 07:10] VITALS: BP 107/72
--- NOTE | 2019-05-05 07:41 | PDOC ---
PROGRESS NOTES Chief Complaint Chief Complaint A/P: Chest pain - seems more likely GI related. Concerning hx with her father's early . Troponins and echo negative. This was likely esophagitis from doxycycline and NSAIDS Nausea and vomiting - more likely intolerance of yet another antibiotic given her symptoms are classic doxycycline side effects Epigastric pain - possibly gastritis from NSAIDs, high dose steroids and concomitant doxycycline dosing. Trial PPI for 30 days. Eczema - cont cream Hypothyroidism - cont levothyroxine Dental caries - would hold off on antibiotics for now, has had side effects from two already Microcytic anemia - will check iron studies. She previously has not tolerated oral iron therapy, could benefit from IV replacement Hypokalemia - will replace, likely from vomiting, GI losses Hyperglycemia - had gestational diabetes with no further testing Hypothyroidism - cont synthroid FEN - General diet PPX - ambulatory, low risk FULL CODE D/c History of Present Illness History of Present Illness Ms Taylor is a 44-year-old female w/ PMHx Hypothyroid, eczema, gestational diabetes who presents with complaint of anterior chest discomfort as well as epigastric discomfort that started earlier today. She describes pain as sharp and stabbing in nature and states that pain is worsened with exertion. She rates pain at a 9 out of 10. She does report some nausea and decided to come to the ED when she started vomiting. Patient was seen here last night and the emergency room and had been treated for a completely different problem, she had noted a diffuse urticarial rash after she had been taking a few doses of clindamycin prescribed by her dentist. She was given a script for doxycycline and high dose steroids and discharged home. She has also been taking NSAIDs, ibuprofen for menstrual pains and notes her stools have been darker recently. She is worried because her father at age 48 of early CAD, he also had DM and HTN. In ED had EKG that was NSR with non-specific ST segmental changes. Glucose 139. WBC 14K, Hb 11 with MCV 73, K 3.3 and mild elevation in her AST and ALT. Lipase WNL. CXR negative. Troponins trended negative. IV PPI helped significantly, able to have appetite and actually eat lunch today. Seen by cardiology, echo negative. Outpatient GI f/u recommended Vitals Vitals Vital Signs Date Time Temp Pulse Resp B/P (MAP) Pulse Ox O2 Delivery O2 Flow Rate FiO2 05/05/19 07:10 97.8 58 16 107/72 (84) 92 Room Air 97.8 Physical Exam General: Alert, Oriented X3, Cooperative, mild distress Abdomen: Normal bowel sounds, Soft, No hepatosplenomegaly, No masses, Other (epigastric tenderness) Extremities: No clubbing, No cyanosis, No edema, Normal pulses, No tenderness/swelling Skin: No rashes, No breakdown, No significant lesion Labs LABS Laboratory Tests Test 05/04/19 15:05 05/04/19 21:45 05/05/19 00:20 05/05/19 03:45 White Blood Count 14.0 x10^3/uL (4.0-11.0) Red Blood Count 4.69 x10^6/uL (3.50-5.40) Hemoglobin 11.0 g/dL (12.0-15.5) Hematocrit 34.3 % (36.0-47.0) Mean Corpuscular Volume 73 fL (79-100) Mean Corpuscular Hemoglobin 24 pg (25-35) Mean Corpuscular Hemoglobin Concent 32 g/dL (31-37) Red Cell Distribution Width 15.9 % (11.5-14.5) Platelet Count 412 x10^3/uL (140-400) Neutrophils (%) (Auto) 79 % (31-73) Lymphocytes (%) (Auto) 16 % (24-48) Monocytes (%) (Auto) 5 % (0-9) Eosinophils (%) (Auto) 0 % (0-3) Basophils (%) (Auto) 0 % (0-3) Neutrophils # (Auto) 11.1 x10^3/uL (1.8-7.7) Lymphocytes # (Auto) 2.2 x10^3/uL (1.0-4.8) Monocytes # (Auto) 0.6 x10^3/uL (0.0-1.1) Eosinophils # (Auto) 0.0 x10^3/uL (0.0-0.7) Basophils # (Auto) 0.1 x10^3/uL (0.0-0.2) Sodium Level 136 mmol/L (136-145) Potassium Level 3.3 mmol/L (3.5-5.1) Chloride Level 99 mmol/L (98-107) Carbon Dioxide Level 28 mmol/L (21-32) Anion Gap 9 (6-14) Blood Urea Nitrogen 11 mg/dL (7-20) Creatinine 0.8 mg/dL (0.6-1.0) Estimated GFR (Cockcroft-Gault) 78.7 BUN/Creatinine Ratio 14 (6-20) Glucose Level 139 mg/dL (70-99) Calcium Level 8.9 mg/dL (8.5-10.1) Magnesium Level 1.8 mg/dL (1.8-2.4) Total Bilirubin 0.4 mg/dL (0.2-1.0) Aspartate Amino Transf (AST/SGOT) 46 U/L (15-37) Alanine Aminotransferase (ALT/SGPT) 66 U/L (14-59) Alkaline Phosphatase 62 U/L (46-116) Troponin I Quantitative < 0.017 ng/mL (0.000-0.055) < 0.017 ng/mL (0.000-0.055) < 0.017 ng/mL (0.000-0.055) RO-Plv-D-Type Natriuretic Peptide 129 pg/mL (0-124) Total Protein 8.3 g/dL (6.4-8.2) Albumin 3.7 g/dL (3.4-5.0) Albumin/Globulin Ratio 0.8 (1.0-1.7) Lipase 68 U/L (73-393) Iron Level 19 ug/dL (50-170) Total Iron Binding Capacity 397 ug/dL (250-450) Iron Saturation 5 % (15-34) Thyroid Stimulating Hormone (TSH) 1.990 uIU/mL (0.358-3.74) Urine Collection Type Unknown Urine Color Jeannette Urine Clarity Cloudy Urine pH 5.5 Urine Specific [place] 1.025 Urine Protein Negative mg/dL (NEG-TRACE) Urine Glucose (UA) Negative mg/dL (NEG) Urine Ketones (Stick) Negative mg/dL (NEG) Urine Blood Negative (NEG) Urine Nitrite Negative (NEG) Urine Bilirubin Negative (NEG) Urine Urobilinogen Dipstick 0.2 mg/dL (0.2 mg/dL) Urine Leukocyte Esterase Negative (NEG) Urine RBC Rare /HPF (0-2) Urine WBC 5-10 /HPF (0-4) Urine Squamous Epithelial Cells Many /LPF Urine Bacteria Moderate /HPF (0-FEW) Urine Mucus Marked /LPF Test 05/05/19 04:00 Triglycerides Level 130 mg/dL (0-150) Cholesterol Level 147 mg/dL (0-200) LDL Cholesterol, Calculated 93 mg/dL (0-100) VLDL Cholesterol, Calculated 26 mg/dL (0-40) Non-HDL Cholesterol Calculated 119 mg/dL (0-129) HDL Cholesterol 28 mg/dL (40-60) Cholesterol/HDL Ratio 5.3 Assessment and Plan Assessmemt and Plan Problems Medical Problems: (1) Chest pain Status: Acute Comment Review of Relevant I have reviewed the following items neeru (where applicable) has been applied. Labs Laboratory Tests Test 05/04/19 15:05 05/04/19 21:45 05/05/19 00:20 05/05/19 03:45 White Blood Count 14.0 x10^3/uL (4.0-11.0) Red Blood Count 4.69 x10^6/uL (3.50-5.40) Hemoglobin 11.0 g/dL (12.0-15.5) Hematocrit 34.3 % (36.0-47.0) Mean Corpuscular Volume 73 fL (79-100) Mean Corpuscular Hemoglobin 24 pg (25-35) Mean Corpuscular Hemoglobin Concent 32 g/dL (31-37) Red Cell Distribution Width 15.9 % (11.5-14.5) Platelet Count 412 x10^3/uL (140-400) Neutrophils (%) (Auto) 79 % (31-73) Lymphocytes (%) (Auto) 16 % (24-48) Monocytes (%) (Auto) 5 % (0-9) Eosinophils (%) (Auto) 0 % (0-3) Basophils (%) (Auto) 0 % (0-3) Neutrophils # (Auto) 11.1 x10^3/uL (1.8-7.7) Lymphocytes # (Auto) 2.2 x10^3/uL (1.0-4.8) Monocytes # (Auto) 0.6 x10^3/uL (0.0-1.1) Eosinophils # (Auto) 0.0 x10^3/uL (0.0-0.7) Basophils # (Auto) 0.1 x10^3/uL (0.0-0.2) Sodium Level 136 mmol/L (136-145) Potassium Level 3.3 mmol/L (3.5-5.1) Chloride Level 99 mmol/L (98-107) Carbon Dioxide Level 28 mmol/L (21-32) Anion Gap 9 (6-14) Blood Urea Nitrogen 11 mg/dL (7-20) Creatinine 0.8 mg/dL (0.6-1.0) Estimated GFR (Cockcroft-Gault) 78.7 BUN/Creatinine Ratio 14 (6-20) Glucose Level 139 mg/dL (70-99) Calcium Level 8.9 mg/dL (8.5-10.1) Magnesium Level 1.8 mg/dL (1.8-2.4) Total Bilirubin 0.4 mg/dL (0.2-1.0) Aspartate Amino Transf (AST/SGOT) 46 U/L (15-37) Alanine Aminotransferase (ALT/SGPT) 66 U/L (14-59) Alkaline Phosphatase 62 U/L (46-116) Troponin I Quantitative < 0.017 ng/mL (0.000-0.055) < 0.017 ng/mL (0.000-0.055) < 0.017 ng/mL (0.000-0.055) QV-Pai-W-Type Natriuretic Peptide 129 pg/mL (0-124) Total Protein 8.3 g/dL (6.4-8.2) Albumin 3.7 g/dL (3.4-5.0) Albumin/Globulin Ratio 0.8 (1.0-1.7) Lipase 68 U/L (73-393) Iron Level 19 ug/dL (50-170) Total Iron Binding Capacity 397 ug/dL (250-450) Iron Saturation 5 % (15-34) Thyroid Stimulating Hormone (TSH) 1.990 uIU/mL (0.358-3.74) Urine Collection Type Unknown Urine Color Jeannette Urine Clarity Cloudy Urine pH 5.5 Urine Specific [place] 1.025 Urine Protein Negative mg/dL (NEG-TRACE) Urine Glucose (UA) Negative mg/dL (NEG) Urine Ketones (Stick) Negative mg/dL (NEG) Urine Blood Negative (NEG) Urine Nitrite Negative (NEG) Urine Bilirubin Negative (NEG) Urine Urobilinogen Dipstick 0.2 mg/dL (0.2 mg/dL) Urine Leukocyte Esterase Negative (NEG) Urine RBC Rare /HPF (0-2) Urine WBC 5-10 /HPF (0-4) Urine Squamous Epithelial Cells Many /LPF Urine Bacteria Moderate /HPF (0-FEW) Urine Mucus Marked /LPF Test 05/05/19 04:00 Triglycerides Level 130 mg/dL (0-150) Cholesterol Level 147 mg/dL (0-200) LDL Cholesterol, Calculated 93 mg/dL (0-100) VLDL Cholesterol, Calculated 26 mg/dL (0-40) Non-HDL Cholesterol Calculated 119 mg/dL (0-129) HDL Cholesterol 28 mg/dL (40-60) Cholesterol/HDL Ratio 5.3 Laboratory Tests Test 05/04/19 15:05 05/04/19 21:45 05/05/19 00:20 05/05/19 03:45 White Blood Count 14.0 x10^3/uL (4.0-11.0) Red Blood Count 4.69 x10^6/uL (3.50-5.40) Hemoglobin 11.0 g/dL (12.0-15.5) Hematocrit 34.3 % (36.0-47.0) Mean Corpuscular Volume 73 fL (79-100) Mean Corpuscular Hemoglobin 24 pg (25-35) Mean Corpuscular Hemoglobin Concent 32 g/dL (31-37) Red Cell Distribution Width 15.9 % (11.5-14.5) Platelet Count 412 x10^3/uL (140-400) Neutrophils (%) (Auto) 79 % (31-73) Lymphocytes (%) (Auto) 16 % (24-48) Monocytes (%) (Auto) 5 % (0-9) Eosinophils (%) (Auto) 0 % (0-3) Basophils (%) (Auto) 0 % (0-3) Neutrophils # (Auto) 11.1 x10^3/uL (1.8-7.7) Lymphocytes # (Auto) 2.2 x10^3/uL (1.0-4.8) Monocytes # (Auto) 0.6 x10^3/uL (0.0-1.1) Eosinophils # (Auto) 0.0 x10^3/uL (0.0-0.7) Basophils # (Auto) 0.1 x10^3/uL (0.0-0.2) Sodium Level 136 mmol/L (136-145) Potassium Level 3.3 mmol/L (3.5-5.1) Chloride Level 99 mmol/L (98-107) Carbon Dioxide Level 28 mmol/L (21-32) Anion Gap 9 (6-14) Blood Urea Nitrogen 11 mg/dL (7-20) Creatinine 0.8 mg/dL (0.6-1.0) Estimated GFR (Cockcroft-Gault) 78.7 BUN/Creatinine Ratio 14 (6-20) Glucose Level 139 mg/dL (70-99) Calcium Level 8.9 mg/dL (8.5-10.1) Magnesium Level 1.8 mg/dL (1.8-2.4) Total Bilirubin 0.4 mg/dL (0.2-1.0) Aspartate Amino Transf (AST/SGOT) 46 U/L (15-37) Alanine Aminotransferase (ALT/SGPT) 66 U/L (14-59) Alkaline Phosphatase 62 U/L (46-116) Troponin I Quantitative < 0.017 ng/mL (0.000-0.055) < 0.017 ng/mL (0.000-0.055) < 0.017 ng/mL (0.000-0.055) JQ-Jac-A-Type Natriuretic Peptide 129 pg/mL (0-124) Total Protein 8.3 g/dL (6.4-8.2) Albumin 3.7 g/dL (3.4-5.0) Albumin/Globulin Ratio 0.8 (1.0-1.7) Lipase 68 U/L (73-393) Iron Level 19 ug/dL (50-170) Total Iron Binding Capacity 397 ug/dL (250-450) Iron Saturation 5 % (15-34) Thyroid Stimulating Hormone (TSH) 1.990 uIU/mL (0.358-3.74) Urine Collection Type Unknown Urine Color Jeannette Urine Clarity Cloudy Urine pH 5.5 Urine Specific [place] 1.025 Urine Protein Negative mg/dL (NEG-TRACE) Urine Glucose (UA) Negative mg/dL (NEG) Urine Ketones (Stick) Negative mg/dL (NEG) Urine Blood Negative (NEG) Urine Nitrite Negative (NEG) Urine Bilirubin Negative (NEG) Urine Urobilinogen Dipstick 0.2 mg/dL (0.2 mg/dL) Urine Leukocyte Esterase Negative (NEG) Urine RBC Rare /HPF (0-2) Urine WBC 5-10 /HPF (0-4) Urine Squamous Epithelial Cells Many /LPF Urine Bacteria Moderate /HPF (0-FEW) Urine Mucus Marked /LPF Test 05/05/19 04:00 Triglycerides Level 130 mg/dL (0-150) Cholesterol Level 147 mg/dL (0-200) LDL Cholesterol, Calculated 93 mg/dL (0-100) VLDL Cholesterol, Calculated 26 mg/dL (0-40) Non-HDL Cholesterol Calculated 119 mg/dL (0-129) HDL Cholesterol 28 mg/dL (40-60) Cholesterol/HDL Ratio 5.3 Medications Current Medications Sodium Chloride 1,000 ml @ 1,000 mls/hr Q1H IV Last administered on 05/04/19at 15:24; Start 05/04/19 at 15:03; Stop 05/04/19 at 16:02; Status DC Ketorolac Tromethamine (Toradol 30mg Vial) 30 mg 1X ONCE IVP Last administered on 05/04/19at 15:23; Start 05/04/19 at 15:15; Stop 05/04/19 at 15:16; Status DC Ondansetron HCl (Zofran) 4 mg 1X ONCE IV Last administered on 05/04/19at 15:21; Start 05/04/19 at 15:15; Stop 05/04/19 at 15:16; Status DC Pantoprazole Sodium (PROTONIX VIAL for IV PUSH) 40 mg 1X ONCE IVP Last administered on 05/04/19at 18:32; Start 05/04/19 at 18:00; Stop 05/04/19 at 18:01; Status DC Ondansetron HCl (Zofran) 4 mg PRN Q8HRS PRN IV NAUSEA/VOMITING; Start 05/04/19 at 18:15; Stop 05/05/19 at 18:14 Morphine Sulfate (Morphine Sulfate) 2 mg PRN Q2HR PRN IV PAIN; Start 05/04/19 at 18:15; Stop 05/05/19 at 18:14 Potassium Chloride (Klor-Con) 40 meq 1X ONCE PO Last administered on 05/04/19at 21:15; Start 05/04/19 at 20:45; Stop 05/04/19 at 20:53; Status DC Levothyroxine Sodium (Synthroid) 50 mcg DAILY06 PO Last administered on 9at 07:06; Start 05/05/19 at 06:00 Iron Sucrose 500 mg/Sodium Chloride 275 ml @ 78.571 mls/ hr 1X ONCE IV ; Start 05/05/19 at 05:00; Stop 05/05/19 at 08:29 Active Scripts Active Doxycycline Hyclate 100 Mg Tablet 1 Tab PO BID 5 Days Gabapentin (Gabapentin) 300 Mg Capsule 300 Mg PO TID Robaxin (Methocarbamol) 500 Mg Tablet 1 Tab PO TID Naproxen 500 Mg Tablet.dr 1 Tab PO BID Reported Synthroid (Levothyroxine Sodium) 50 Mcg Tablet 50 Mcg PO DAILYAC Vitals/I & O Vital Sign - Last 24 Hours 05/04/19 05/04/19 05/04/19 05/04/19 14:48 15:30 16:00 16:30 Temp 97.5 97.5 Pulse 74 66 66 66 Resp 16 B/P (MAP) 132/87 (102) 111/56 (74) 108/63 (78) 100/59 (73) Pulse Ox 100 100 99 99 O2 Delivery Room Air Room Air Room Air Room Air 05/04/19 05/04/19 05/04/19 05/04/19 17:00 17:30 18:00 18:30 Pulse 66 66 70 68 B/P (MAP) 101/56 (71) 110/58 (75) 125/73 (90) Pulse Ox 99 100 100 97 O2 Delivery Room Air Room Air Room Air Room Air 05/04/19 05/04/19 05/04/19 05/05/19 19:14 20:20 22:17 03:27 Temp 98.4 98.2 98.4 98.4 98.2 98.4 Pulse 63 64 63 Resp 16 16 16 B/P (MAP) 119/69 (86) 108/57 (74) 113/60 (77) Pulse Ox 100 100 100 O2 Delivery Room Air Room Air Room Air Room Air 05/05/19 07:10 Temp 97.8 97.8 Pulse 58 Resp 16 B/P (MAP) 107/72 (84) Pulse Ox 92 O2 Delivery Room Air Intake and Output 1105/04/19 05/05/19 15:00 23:00 07:00 Intake Total 1240 ml 0 ml Output Total 150 ml Balance 1240 ml -150 ml ALEJANDRINA CULLEN MD May 05, 2019 07:41
[2019-05-05] MEDS ORDERED: LIDO:MAALOX 1:1 20 ML SINGLE DOSE. PO PRN (07:45)
[2019-05-05] MEDS ORDERED: PANTOPRAZOLE 40 MG TABLET.DR. PO SCH (07:45)
[2019-05-05 08:37] LABS: BASO % 0 % (0-3); EOS % 0 % (0-3); HEMATOCRIT 31.2 % (36.0-47.0); HEMOGLOBIN 9.8 g/dL (12.0-15.5); LYMPH # 2.6 x10^3/uL (1.0-4.8); LYMPH % 32 % (24-48); MEAN CORPUSCULAR HEMOGLOBIN 24 pg (25-35); MEAN CORPUSCULAR HGB CONC 31 g/dL (31-37); MEAN CORPUSCULAR VOLUME 75 fL (79-100); MONO # 0.4 x10^3/uL (0.0-1.1); MONO % 5 % (0-9); NEUT # 5.2 x10^3/uL (1.8-7.7); NEUT % 63 % (31-73); PLATELET COUNT 323 x10^3/uL (140-400); RED BLOOD COUNT 4.15 x10^6/uL (3.50-5.40); WHITE BLOOD COUNT 8.3 x10^3/uL (4.0-11.0)
[2019-05-05 08:45] LABS: CALCIUM 8.4 mg/dL (8.5-10.1); CREATININE 0.8 mg/dL (0.6-1.0); GFR 78.7; POTASSIUM 3.9 mmol/L (3.5-5.1)
--- NOTE | 2019-05-05 10:18 | EKG ---
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
[2019-05-05 10:26] VITALS: BP 121/65
--- NOTE | 2019-05-05 10:55 | CONS ---
DATE OF CONSULTATION: 05/05/2019 REASON FOR CONSULTATION: Chest pain. HISTORY OF PRESENT ILLNESS: The patient is a pleasant 44-year-old woman without any significant past medical history who presents to the hospital in the setting of epigastric discomfort. She apparently was in her usual state of health and began to have some epigastric discomfort, which prompted arrival to the ER. Initial evaluation in the ER did not reveal any significant pathology. Her EKG and enzymes were unremarkable. The pain was described initially as stabbing in nature and 9/10 and had some nausea, but overall in the last 24 hours, this had resolved. Upon initial arrival, her vital signs were grossly unremarkable without any evidence of significant hypertension. At baseline, she is able to do activities of daily living and she is a mother of 4 children and does not have any significant issues. PAST MEDICAL HISTORY: Hypothyroidism. SOCIAL HISTORY: The patient denies any alcohol, tobacco or illicit drug use. 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 ALLERGIES: PENICILLINS, LATEX, AND MILK. CURRENT CARDIOVASCULAR MEDICATIONS: None. She has been started on pantoprazole with significant relief of her symptoms. PHYSICAL EXAMINATION: VITAL SIGNS: Afebrile, 58, 16, 107/72, 92% on room air. GENERAL: She is alert and oriented, in no acute distress. HEAD AND NECK: Unremarkable. CARDIAC: Regular rate and rhythm without murmurs, rubs or gallops. LUNGS: Clear to auscultation bilaterally. ABDOMEN: Soft, nontender, obese. EXTREMITIES: No clubbing, cyanosis or edema with 2+ pulses. NEUROLOGIC: No focal deficits. MUSCULOSKELETAL: No trauma. DIAGNOSTIC STUDIES: Hemoglobin is 9.8 and platelets are 223. Troponin negative x 3. EKG is unremarkable. LDL of 93 with an HDL of 28. TSH is 1.9. Chest x-ray demonstrates no acute pathology. Echocardiogram demonstrates normal LV systolic function without any significant wall motion abnormalities. IMPRESSION: 1. Noncardiac chest pain, likely gastroesophageal reflux disease. 2. Hypothyroidism. 3. Severe iron deficiency and currently being repleted. RECOMMENDATIONS: 1. No further cardiovascular testing is necessary. She is very low risk presentation given lack of any significant risk factors, normal EKG, normal enzymes and no significant pathology on the echocardiogram with preserved LV function. 2. From a cardiac standpoint, she can be safely discharged home. Please call with any further questions. ROBSON DARLING MD DR: SABINA/mando JOB#: [id number] / [id number] SIDNEY
--- NOTE | 2019-05-05 11:47 | CARD ---
MR#: [id number] Date of Study: 05/05/2019 Ordering Physician: CHINTAN DARLING, Referring Physician: CHINTAN DARLING, Tech: Romy Lynn RDCS APPROVED REPORT EXAM: Two-dimensional and M-mode echocardiogram with Doppler and color Doppler. Other Information Quality : Good INDICATION Chest Pain 2D DIMENSIONS RVDd2.8 (2.9-3.5cm)Left Atrium(2D)4.2 (1.6-4.0cm) IVSd0.8 (0.7-1.1cm)Aortic Root(2D)2.3 (2.0-3.7cm) LVDd4.3 (3.9-5.9cm)LVOT Diameter2.0 (1.8-2.4cm) PWd0.8 (0.7-1.1cm)LVDs2.5 (2.5-4.0cm) FS (%) 30.0 %SV63.3 ml LVEF(%)60.0 (>50%) Aortic Valve AoV Peak Golden.149.3cm/sAoV VTI28.5cm AO Peak GR.8.9mmHgLVOT VTI 24.65cm AO Mean GR.5mmHgAVA (VTI)2.70cm2 Mitral Valve MV E Clvhzoeq653.8cm/sMV DECEL [id number] MV A Xzqgggfl58.4cm/sE/A Ratio2.3 TDI Lateral E' P. V14.48cm/sMedial E' P. V11.97cm/s E/Lateral E'7.4E/Medial E'9.0 Tricuspid Valve TR P. Iuxvggaj175tt/sRAP XHXTDUSV4nkRt TR Peak Gr.92pgRcVUHH18rjQw Pulmonary Vein S1 Uvzipktw50.9cm/sS2 Bzjqryyk42.92cm/s D2 Agequzul59.9cm/s LEFT VENTRICLE The left ventricle is normal size. There is normal left ventricular wall thickness. The left ventricu lar systolic function is normal and the ejection fraction is within normal range. The Ejection Fracti on is 55-60%. There is normal LV segmental wall motion. The left ventricular diastolic function and f illing is normal for age. RIGHT VENTRICLE The right ventricle is normal size. The right ventricular systolic function is normal. ATRIA The left atrium is mildly dilated. The right atrium size is normal. The interatrial septum is intact with no evidence for an atrial septal defect or patent foramen ovale as noted on 2-D or Doppler imagi ng. AORTIC VALVE The aortic valve is normal in structure and function. Doppler and Color Flow revealed no significant aortic regurgitation. There is no significant aortic valvular stenosis. MITRAL VALVE The mitral valve is normal in structure and function. There is no evidence of mitral valve prolapse. There is no mitral valve stenosis. Doppler and Color-flow revealed trace mitral regurgitation. TRICUSPID VALVE The tricuspid valve is normal in structure and function. Doppler and Color Flow revealed trace tricus pid regurgitation. The PA pressure was estimated at 34 mmHg. There is no tricuspid valve stenosis. PULMONIC VALVE Doppler and Color Flow revealed trace pulmonic valvular regurgitation. There is no pulmonic valvular stenosis. GREAT VESSELS The aortic root is normal in size. The ascending aorta is normal in size. The IVC is normal in size a nd collapses >50% with inspiration. PERICARDIAL EFFUSION There is no evidence of significant pericardial effusion. Critical Notification Critical Value: No <Conclusion> The left ventricular systolic function is normal and the ejection fraction is within normal range. Th e Ejection Fraction is 55-60%. There is normal LV segmental wall motion. Doppler and Color Flow revealed trace tricuspid regurgitation. The PA pressure was estimated at 34 mm Hg. Signed by : Chintan Darling, Electronically Approved : 05/05/2019 11:47:17
[2019-05-05] MEDS ORDERED: PANT40TA77 PO (12:21)
--- NOTE | 2019-05-05 14:53 | NUR ---
Discharge Note: MEREDITH MERRITT [address] Discharge instructions and discharge home medications reviewed with Patient and a copy given. All questions have been answered and understanding verbalized. The following instructions and handouts were given: ulcer and esophagitis, contact info for Dr. Marin, meds/prescriptions. Discontinued lines and drains: IV removed, no lines present on discharge. Patient discharged to home, left with family to private vehicle.
== END 2019-05-05 14:35 | disposition home or self-care (01) | DRG 392 ==
LOC: ER 14:45 → 2 SOUTH 17:57
PROVIDERS: ADMIT Internal Medicine; ATTEND Internal Medicine
DX: K21.0 Gastro-esophageal reflux disease with esophagitis (principal); E03.9 Hypothyroidism, unspecified; K29.70 Gastritis, unspecified, without bleeding; L30.9 Dermatitis, unspecified; K02.9 Dental caries, unspecified; E87.6 Hypokalemia; D50.9 Iron deficiency anemia, unspecified; R73.9 Hyperglycemia, unspecified; Z86.32 Personal history of gestational diabetes; Z88.0 Allergy status to penicillin; Z91.040 Latex allergy status; Z91.011 Allergy to milk products; Z98.891 History of uterine scar from previous surgery; Z83.3 Family history of diabetes mellitus; Z82.49 Family history of ischemic heart disease and other diseases of the circulatory system
CPT/HCPCS: 36415; 71045; 80048; 80053; 80061; 81001; 83036; 83540; 83550; 83690; 83735; 83880; 84443; 84484; 85025; 87086; 93005; 93306; 96361; 96374; 96375; C9113; J1756; J1885; J2405; J7030; J7050; 99285-25; G0378

== ENCOUNTER 2020-10-19 19:34 | Emergency (ER) | payer OTHER ==
[~2020-10-19] VITALS: Ht 157.5 cm; Wt 102.7 kg
[~2020-10-19 19:34] MED LIST changes: +LEVO50TA PO; +PANT40TA77 PO
[2020-10-19] MEDS ORDERED: HYDROcodone/APAP 5/325MG 1 TAB TABLET PO ONE (20:00)
[2020-10-19] MEDS ORDERED: NEOMYCIN/POLYMYXIN/HC OTIC SUSPENSION 10ML BOTTLE. AD ONE (20:00)
[2020-10-19 20:06] VITALS: BP 148/84
[2020-10-19] MEDS ORDERED: HYDR-2761 PO (20:27)
[2020-10-19] MEDS ORDERED: CIPR500T94 PO (20:27)
--- NOTE | 2020-10-19 20:28 | ED.ADGEN ---
Past Medical History Past Medical History: Hypothyroid, Other Additional Past Medical Histor: GEST DM, ECZEMA Past Surgical History: , Tubal ligation Smoking Status: Former Smoker Alcohol Use: None Drug Use: None General Adult EDM: Chief Complaint: EARACHE/EAR PAIN HPI: HPI: Patient is a 45 year old female who presents emergency department with complaints of continued right ear pain. Patient states she was seen at urgent care yesterday and prescribed a Z-Musa and Cipro eyedrops to put in her ear. She states that the pain has not gotten any better she has been taking Tylenol for the pain with no relief. She denies any fever, nausea, vomiting, decreased hearing, pain behind her right ear, or abnormal drainage from her ear. She currently rates pain 10 out of 10 on the pain scale, she denies any alleviating factors, pain is worse with movement of her ear. Review of Systems: Review of Systems: Complete ROS is negative unless otherwise noted in HPI. Current Medications: Current Medications Medications (Trade) Dose Ordered Sig/Herbie Start Time Stop Time Status Last Admin Dose Admin Acetaminophen/ Hydrocodone Bitart (Lortab 5/325) 1 tab 1X ONCE 10/19/20 20:00 10/19/20 20:01 DC 10/19/20 20:06 1 TAB Neomycin/ Polymyxin/ Hydrocortisone (Cortisporin Otic) 1 drop 1X ONCE 10/19/20 20:00 10/19/20 20:01 DC 10/19/20 20:07 1 DROP Allergies: Allergies: Allergies Coded Allergies Type Severity Reaction Last Updated Verified Penicillins Allergy Severe Anaphylaxis 12/31/16 Yes latex Allergy Intermediate 12/31/16 Yes milk Allergy Intermediate 12/31/16 Yes Physical Exam: PE: See Above Constitutional: Well developed, well nourished, no acute distress, non-toxic appearance. [] HENT: Normocephalic, atraumatic, left external ear normal, left TM normal, unable to visualize right TM due to diffuse edema from otitis externa, nose normal, no mastoid tenderness to palpation. [] Eyes: PERRLA, EOMI, conjunctiva normal, no discharge. [] Neck: Normal range of motion, supple, nontender no stridor. [] Cardiovascular:Heart rate regular rhythm Lungs & Thorax: Respirations even and unlabored, no retractions, no respiratory distress Skin: Warm, dry, no erythema, no rash. [] Extremities: No cyanosis, ROM intact, no edema. [] Neurologic: Alert and oriented X 3, no focal deficits noted. [] Psychologic: Affect normal, judgement normal, mood normal. [] Current Patient Data: Vital Signs: Vital Signs Date Time Temp Pulse Resp B/P (MAP) Pulse Ox O2 Delivery O2 Flow Rate FiO2 10/19/20 20:06 80 18 148/84 (105) 95 Room Air 10/19/20 19:40 98.3 98.3 EKG: EKG: [] Heart Score: C/O Chest Pain: No Risk Scores: Score 0 - 3: 2.5% MACE over next 6 weeks - Discharge Home Score 4 - 6: 20.3% MACE over next 6 weeks - Admit for Clinical Observation Score 7 - 10: 72.7% MACE over next 6 weeks - Early Invasive Strategies Radiology/Procedures: Radiology/Procedures: An ear wick was inserted into the right ear canal by myself and polymyxin/neomycin/hydrocortisone eardrops were administered by myself. [] Course & Med Decision Making: Course & Med Decision Making Pertinent Labs and Imaging studies reviewed. (See chart for details) Patient was instructed to stop using her Cipro eardrops and taking the Zithromax that was prescribed. Patient was given the bottle of polymyxin/neomycin/HC eardrops to use at home. Patient was instructed to administer 4 drops into right ear 4 times a day for 5 to 7 days. Follow-up with your primary care doctor on Wednesday for reevaluation, return to the ER if symptoms worsen or fever develops. Patient was given hydrocodone for relief of pain in the emergency room. Will prescribe for hydrocodone to take at home as needed for severe pain. Patient verbalized an understanding of home care, medications, follow-up, and return to ED instructions and was in agreement with the plan of care. []The patient was seen and interviewed as well as examined at the bedside. The chart was reviewed. The case was discussed. Agree with the plan of care. Dragon Disclaimer: Omero Disclaimer: This electronic medical record was generated, in whole or in part, using a voice recognition dictation system. Departure Departure Impression: Primary Impression: Right otitis externa Disposition: HOME / SELF CARE / HOMELESS Condition: STABLE Referrals: NI LARA APRN (PCP) Patient Instructions: Otitis Externa, [id number] Additional Instructions: Discontinue use of the medications that were prescribed to you urgent care yesterday. Fill the prescription and use it as directed. Administer 4 drops of the neomycin/polymyxin/HC eardrops into your right ear 4 times a day for 5 to 7 days. Do not take more than 4000 mg of Tylenol in a 24-hour period. Follow-up with your primary care doctor on Wednesday for repeat evaluation, return to the ER if symptoms worsen or fever develops. Scripts Ciprofloxacin Hcl (CIPRO) 500 Mg Tablet 1 TAB PO BID for 7 Days, #14 TAB 0 Refills Prov: ADRIANA RICH APRN 10/19/20 Hydrocodone Bit/Acetaminophen (HYDROCODONE-APAP 5-325 ) 1 Tab Tablet 0.5-1 TAB PO PRN Q6HRS PRN for SEVERE PAIN 7-10, #4 TAB 0 Refills Prov: ADRIANA RICH APRN 10/19/20 Problem Qualifiers Primary Impression: Right otitis externa Otitis externa type: unspecified type Chronicity: acute Qualified Codes: H60.501 - Unspecified acute noninfective otitis externa, right ear ADRIANA RICH APRN October 19, 2020 20:28 JOSE DONNELLY DO October 23, 2020 18:49
== END 2020-10-19 20:32 | disposition home or self-care (01) ==
LOC: ER 19:34
DX: H60.501 Unspecified acute noninfective otitis externa, right ear (principal); E03.9 Hypothyroidism, unspecified; Z87.891 Personal history of nicotine dependence; Z88.0 Allergy status to penicillin; Z91.040 Latex allergy status; Z91.011 Allergy to milk products
CPT/HCPCS: 99283

== ENCOUNTER 2021-09-19 21:58 | Emergency (ER) | payer OTHER ==
[~2021-09-19] VITALS: Ht 157.5 cm; Wt 104.5 kg
[~2021-09-19 21:58] MED LIST changes: +CIPR500T94 PO; +HYDR-2761 PO
--- NOTE | 2021-09-19 22:21 | RAD ---
Exam: Chest one view INDICATION: Chest pain TECHNIQUE: Frontal view of the chest Comparisons: 05/04/2019 FINDINGS: The cardiomediastinal silhouette and pulmonary vessels are within normal limits. The lung and pleural spaces are clear. IMPRESSION: No acute cardiopulmonary process. Electronically signed by: Jesús Lopez MD (09/19/2021 10:19 PM) [facility]
[2021-09-19 22:42] LABS: BASO % 1 % (0-3); EOS % 1 % (0-3); HEMATOCRIT 30.1 % (36.0-47.0); HEMOGLOBIN 9.3 g/dL (12.0-15.5); LYMPH # 1.5 x10^3/uL (1.0-4.8); LYMPH % 21 % (24-48); MEAN CORPUSCULAR HEMOGLOBIN 20 pg (25-35); MEAN CORPUSCULAR HGB CONC 31 g/dL (31-37); MEAN CORPUSCULAR VOLUME 66 fL (79-100); MONO # 0.4 x10^3/uL (0.0-1.1); MONO % 6 % (0-9); NEUT # 5.2 x10^3/uL (1.8-7.7); NEUT % 72 % (31-73); PLATELET COUNT 378 x10^3/uL (140-400); RED BLOOD COUNT 4.59 x10^6/uL (3.50-5.40); RED CELL DISTRIBUTION WIDTH 17.4 % (11.5-14.5); WHITE BLOOD COUNT 7.2 x10^3/uL (4.0-11.0)
[2021-09-19 22:49] LABS: CALCIUM 9.2 mg/dL (8.5-10.1); CREATININE 0.8 mg/dL (0.6-1.0); GFR 77.9; POTASSIUM 4.4 mmol/L (3.5-5.1)
[2021-09-19 22:55] LABS: ALBUMIN 3.8 g/dL (3.4-5.0); ALBUMIN/GLOBULIN RATIO 0.9 (1.0-1.7); MAGNESIUM 1.8 mg/dL (1.8-2.4); TOTAL BILIRUBIN 0.3 mg/dL (0.2-1.0); TOTAL PROTEIN 7.9 g/dL (6.4-8.2)
--- NOTE | 2021-09-19 22:58 | PHYS DOC ---
Past Medical History Past Medical History: Hypothyroid, Other Additional Past Medical Histor: GEST DM, ECZEMA Past Surgical History: , Tubal ligation Smoking Status: Former Smoker Alcohol Use: None Drug Use: None General Adult EDM: Chief Complaint: CHEST PAIN HPI: HPI: Patient is a 46 year old female who present to ER for evaluation of epigastric abdominal pain, radiates into her back, started at 4 AM this morning. Patient felt like she might have indigestion but the pain did not improve. Patient had history of iron deficiency anemia, she took her iron pills but she continued to have pain so she came here for evaluation. Patient denies any recent travel o peration. Patient denies any history of blood clot disorder, no history of coronary artery disease, no diabetic. Patient denies any cough or fever. Review of Systems: Review of Systems: Constitutional: Denies fever or chills. [] Eyes: Denies change in visual acuity. [] HENT: Denies nasal congestion or sore throat. [] Respiratory: Denies cough or shortness of breath. [] Cardiovascular: Denies chest pain or edema. [] GI: Positive for episgastric abdominal pain, no nausea, vomiting, bloody stools or diarrhea. [] : Denies dysuria. [] Musculoskeletal: Denies back pain or joint pain. [] Integument: Denies rash. [] Neurologic: Denies headache, focal weakness or sensory changes. [] Endocrine: Denies polyuria or polydipsia. [] Lymphatic: Denies swollen glands. [] Psychiatric: Denies depression or anxiety. [] Heart Score: C/O Chest Pain: Yes HEART Score for Chest Pain: HEART Score for Chest Pain Response (Comments) Value History Slighlty/Non-Suspicious 0 ECG Normal 0 Age < 45 0 Risk Factors No Risk Factors 0 Troponin < Normal Limit 0 Total 0 Risk Factors: Risk Factors: DM, Current or recent (<one month) smoker, HTN, HLP, family history of CAD, obesity. Risk Scores: Score 0 - 3: 2.5% MACE over next 6 weeks - Discharge Home Score 4 - 6: 20.3% MACE over next 6 weeks - Admit for Clinical Observation Score 7 - 10: 72.7% MACE over next 6 weeks - Early Invasive Strategies Allergies: Allergies: Allergies Coded Allergies Type Severity Reaction Last Updated Verified Penicillins Allergy Severe Anaphylaxis 12/31/16 Yes latex Allergy Intermediate 12/31/16 Yes milk Allergy Intermediate 12/31/16 Yes Physical Exam: PE: Constitutional: Well developed, well nourished, no acute distress, non-toxic appearance. [] HENT: Normocephalic, atraumatic, bilateral external ears normal, oropharynx moist, no oral exudates, nose normal. [] Eyes: PERRLA, EOMI, conjunctiva normal, no discharge. [] Neck: Normal range of motion, no tenderness, supple, no stridor. [] Cardiovascular:Heart rate regular rhythm, no murmur [] Lungs & Thorax: Bilateral breath sounds clear to auscultation [] Abdomen: Bowel sounds normal, soft, There is tenderness in epigastric area, no masses, no pulsatile masses. [] Skin: Warm, dry, no erythema, no rash. [] Back: No tenderness, no CVA tenderness. [] Extremities: No tenderness, no cyanosis, no clubbing, ROM intact, no edema. [] Neurologic: Alert and oriented X 3, normal motor function, normal sensory function, no focal deficits noted. [] Psychologic: Affect normal, judgement normal, mood normal. [] Current Patient Data: Labs: Laboratory Tests Test 09/19/21 22:11 09/20/21 01:15 09/20/21 01:21 White Blood Count 7.2 x10^3/uL Red Blood Count 4.59 x10^6/uL Hemoglobin 9.3 g/dL Hematocrit 30.1 % Mean Corpuscular Volume 66 fL Mean Corpuscular Hemoglobin 20 pg Mean Corpuscular Hemoglobin Concent 31 g/dL Red Cell Distribution Width 17.4 % Platelet Count 378 x10^3/uL Neutrophils (%) (Auto) 72 % Lymphocytes (%) (Auto) 21 % Monocytes (%) (Auto) 6 % Eosinophils (%) (Auto) 1 % Basophils (%) (Auto) 1 % Neutrophils # (Auto) 5.2 x10^3/uL Lymphocytes # (Auto) 1.5 x10^3/uL Monocytes # (Auto) 0.4 x10^3/uL Eosinophils # (Auto) 0.0 x10^3/uL Basophils # (Auto) 0.0 x10^3/uL Platelet Estimate Pending Sodium Level 139 mmol/L Potassium Level 4.4 mmol/L Chloride Level 102 mmol/L Carbon Dioxide Level 25 mmol/L Anion Gap 12 Blood Urea Nitrogen 12 mg/dL Creatinine 0.8 mg/dL Estimated GFR (Cockcroft-Gault) 77.9 BUN/Creatinine Ratio 15 Glucose Level 145 mg/dL Calcium Level 9.2 mg/dL Magnesium Level 1.8 mg/dL Total Bilirubin 0.3 mg/dL Aspartate Amino Transf (AST/SGOT) 37 U/L Alanine Aminotransferase (ALT/SGPT) 38 U/L Alkaline Phosphatase 66 U/L Troponin I High Sensitivity 34 ng/L 32 ng/L Total Protein 7.9 g/dL Albumin 3.8 g/dL Albumin/Globulin Ratio 0.9 Lipase 88 U/L Urine Collection Type Unknown Urine Color (Auto) Light yellow Urine Turbidity Hazy Urine pH (Auto) 7.5 Urine Specific [place] 1.021 Urine Protein (Auto) Negative mg/dL Urine Glucose (Auto)(UA) Negative mg/dL Urine Ketones (Auto) Negative mg/dL Urine Blood (Auto) Negative Urine Nitrite Negative Urine Bilirubin (Auto) Negative Urine Urobilinogen (Auto) Normal mg/dL Urine Leukocyte Esterase (Auto) Large Urine RBC 0 /HPF Urine WBC 1-4 /HPF Urine Squamous Epithelial Cells Many /LPF Urine Amorphous Sediment Present /HPF Urine Bacteria Many /HPF Urine Mucus Marked /LPF Current Medications Medications (Trade) Dose Ordered Sig/Herbie Route PRN Reason Start Time Stop Time Status Last Admin Dose Admin Multi-Ingredient Mouthwash/Gargle (Gi Cocktail) 20 ml 1X ONCE SWSW 09/19/21 23:15 09/19/21 23:16 DC 09/19/21 23:45 Famotidine (Pepcid Vial) 20 mg 1X ONCE IVP 09/19/21 23:15 09/19/21 23:16 DC 09/19/21 23:45 Morphine Sulfate (Morphine Sulfate) 4 mg 1X ONCE IVP 09/20/21 02:00 09/20/21 02:01 DC Ondansetron HCl (Zofran) 4 mg 1X ONCE IVP 09/20/21 02:00 09/20/21 02:01 DC Laboratory Tests Test 09/19/21 22:11 White Blood Count 7.2 x10^3/uL Red Blood Count 4.59 x10^6/uL Hemoglobin 9.3 g/dL Hematocrit 30.1 % Mean Corpuscular Volume 66 fL Mean Corpuscular Hemoglobin 20 pg Mean Corpuscular Hemoglobin Concent 31 g/dL Red Cell Distribution Width 17.4 % Platelet Count 378 x10^3/uL Neutrophils (%) (Auto) 72 % Lymphocytes (%) (Auto) 21 % Monocytes (%) (Auto) 6 % Eosinophils (%) (Auto) 1 % Basophils (%) (Auto) 1 % Neutrophils # (Auto) 5.2 x10^3/uL Lymphocytes # (Auto) 1.5 x10^3/uL Monocytes # (Auto) 0.4 x10^3/uL Eosinophils # (Auto) 0.0 x10^3/uL Basophils # (Auto) 0.0 x10^3/uL Platelet Estimate Pending Sodium Level 139 mmol/L Potassium Level 4.4 mmol/L Chloride Level 102 mmol/L Carbon Dioxide Level 25 mmol/L Anion Gap 12 Blood Urea Nitrogen 12 mg/dL Creatinine 0.8 mg/dL Estimated GFR (Cockcroft-Gault) 77.9 BUN/Creatinine Ratio 15 Glucose Level 145 mg/dL Calcium Level 9.2 mg/dL Magnesium Level 1.8 mg/dL Total Bilirubin 0.3 mg/dL Aspartate Amino Transf (AST/SGOT) 37 U/L Alanine Aminotransferase (ALT/SGPT) 38 U/L Alkaline Phosphatase 66 U/L Troponin I High Sensitivity 34 ng/L Total Protein 7.9 g/dL Albumin 3.8 g/dL Albumin/Globulin Ratio 0.9 Lipase 88 U/L Current Medications Medications (Trade) Dose Ordered Sig/Herbie Route PRN Reason Start Time Stop Time Status Last Admin Dose Admin Multi-Ingredient Mouthwash/Gargle (Gi Cocktail) 20 ml 1X ONCE SWSW 09/19/21 23:15 09/19/21 23:16 DC Famotidine (Pepcid Vial) 20 mg 1X ONCE IVP 09/19/21 23:15 09/19/21 23:16 DC Laboratory Tests Test 09/19/21 22:11 White Blood Count 7.2 x10^3/uL (4.0-11.0) Red Blood Count 4.59 x10^6/uL (3.50-5.40) Hemoglobin 9.3 g/dL (12.0-15.5) L Hematocrit 30.1 % (36.0-47.0) L Mean Corpuscular Volume 66 fL (79-100) L Mean Corpuscular Hemoglobin 20 pg (25-35) L Mean Corpuscular Hemoglobin Concent 31 g/dL (31-37) Red Cell Distribution Width 17.4 % (11.5-14.5) H Platelet Count 378 x10^3/uL (140-400) Neutrophils (%) (Auto) 72 % (31-73) Lymphocytes (%) (Auto) 21 % (24-48) L Monocytes (%) (Auto) 6 % (0-9) Eosinophils (%) (Auto) 1 % (0-3) Basophils (%) (Auto) 1 % (0-3) Neutrophils # (Auto) 5.2 x10^3/uL (1.8-7.7) Lymphocytes # (Auto) 1.5 x10^3/uL (1.0-4.8) Monocytes # (Auto) 0.4 x10^3/uL (0.0-1.1) Eosinophils # (Auto) 0.0 x10^3/uL (0.0-0.7) Basophils # (Auto) 0.0 x10^3/uL (0.0-0.2) Platelet Estimate Pending Sodium Level 139 mmol/L (136-145) Potassium Level 4.4 mmol/L (3.5-5.1) Chloride Level 102 mmol/L (98-107) Carbon Dioxide Level 25 mmol/L (21-32) Anion Gap 12 (6-14) Blood Urea Nitrogen 12 mg/dL (7-20) Creatinine 0.8 mg/dL (0.6-1.0) Estimated GFR (Cockcroft-Gault) 77.9 BUN/Creatinine Ratio 15 (6-20) Glucose Level 145 mg/dL (70-99) H Calcium Level 9.2 mg/dL (8.5-10.1) Magnesium Level Pending Total Bilirubin Pending Aspartate Amino Transferase (AST) Pending Alanine Aminotransferase (ALT) Pending Alkaline Phosphatase Pending Total Protein Pending Albumin Pending Albumin/Globulin Ratio Pending Lipase Pending Laboratory Tests 09/19/21 22:11 Laboratory Tests 09/19/21 22:11 Vital Signs: Vital Signs Date Time Temp Pulse Resp B/P (MAP) Pulse Ox O2 Delivery O2 Flow Rate FiO2 09/19/21 22:11 97.3 87 16 155/80 (105) 100 Room Air 97.3 EKG: EKG: EKG was done at 1013, heart rate of 82 bpm, normal sinus rhythm, no ST segment elevation. Radiology/Procedures: Radiology/Procedures: [][address] [address] IMAGING REPORT Signed PATIENT: MEREDITH MERRITTCOUNT: [id number] : 1975 LOCATION: ER AGE: 46 SEX: F EXAM STATUS: PRE ER ORD. PHYSICIAN: MAIKEL BERNAL DO REASON: chest pain PROCEDURE: CHEST AP ONLY Exam: Chest one view INDICATION: Chest pain TECHNIQUE: Frontal view of the chest Comparisons: 05/04/2019 FINDINGS: The cardiomediastinal silhouette and pulmonary vessels are within normal limits. The lung and pleural spaces are clear. IMPRESSION: No acute cardiopulmonary process. Electronically signed by: Jesús Aviles MD (09/19/2021 10:19 PM) [facility] DICTATED and SIGNED BY: JESÚS AVILES MD DATE: 09/19/212217 [address] [address] IMAGING REPORT Signed PATIENT: MEREDITH MERRITTCOUNT: [id number] : 1975 LOCATION: ER AGE: 46 SEX: F EXAM STATUS: REG ER ORD. PHYSICIAN: MAIKEL BERNAL DO REASON: RUQ, EPIGASTRIC ABDOMINAL PAIN PROCEDURE: ABDOMEN LTD STUDY: US ABDOMEN LIMITED INDICATION: Right upper quadrant/epigastric abdominal pain. COMPARISON: None. TECHNIQUE: Limited abdominal ultrasound targeted at the right upper quadrant. Findings: Distended gallbladder containing gallstones. Wall thickness is measured at around 0.3 cm. Relative hypoattenuation of the liver parenchyma adjacent to the gallbladder could be from fatty sparing in the setting of background hepatic steatosis. No sonographic Ma's sign was reported. Nondilated common duct at just under 0.5 cm. Poorly visualized pancreas on account of bowel gas. The liver is measured at 17.2 cm longitudinal. Increased hepatic parenchymal echogenicity. The right kidney is normal in size and echogenicity. No hydronephrosis. Patent main portal vein with hepatopedal flow. Nonaneurysmal abdominal aorta. Unremarkable IVC at the liver. Impression: 1. Distended gallbladder with gallstones. Upper limits of normal wall thickness but no sonographic Ma's sign was observed. The findings are equivocal for cholecystitis. Consider a HIDA scan if there is further concern clinically. Nondilated common duct. 2. Hepatic steatosis. Probable fatty sparing adjacent to the gallbladder as opposed to pericholecystic edema. 3. Unremarkable right kidney and evaluated vasculature. Poorly assessed pancreas. Electronically signed by: MICK BENNETT MD (09/20/2021 1:04 AM) [facility] DICTATED and SIGNED BY: MICK BENNETT MD DATE: 09/20/2199 Course & Med Decision Making: Course & Med Decision Making Pertinent Labs and Imaging studies reviewed. (See chart for details) Patient is a 46-year-old female who present to ER due to epigastric strepto coccal abdominal pain. Ultrasound show multiple gallstones, no evidence of cholecystitis. Normal white blood cell count, no fever. Patient was given pain medication in ER, she feels much better. Patient will be discharged home, she will call the general surgeon for outpatient evaluation on Wednesday, patient will be given pain medication to take home. Patient is amenable to plan of care Dragon Disclaimer: Dragon Disclaimer: This electronic medical record was generated, in whole or in part, using a voice recognition dictation system. Departure Departure Impression: Primary Impression: Colic, biliary Disposition: 01 HOME / SELF CARE / HOMELESS Condition: IMPROVED Referrals: NI LARA APRN (PCP) CHRISTINE LR MD Please call this General Surgeon on Wednesday for outpatient follow up. Patient Instructions: Biliary Colic Additional Instructions: Thank you for visiting our Emergency Department. We appreciate you trusting us with your care. If any additional problems come up don't hesitate to return to visit us. Please follow up with your primary care provider so they can plan additional care if needed and know about the problem that you had. If symptoms worsen come back to the Emergency Department. Any concerning symptoms that start such as chest pain, shortness of air, weakness or numbness on one side of the body, running high fevers or any other concerning symptoms return to the ER. Scripts Hydrocodone/Acetaminophen (Hydrocodone-Acetamin 5-325 mg) 1 Each Tablet 1 EACH PO Q6HRS PRN for ABDOMINAL PAIN for 3 Days, #15 TAB Prov: MAIKEL BERNAL DO 09/20/21 MAIKEL BERNAL DO Sep 19, 2021 22:58
[2021-09-19] MEDS ORDERED: LIDO:MAALOX 1:1 20 ML SINGLE DOSE. SWSW ONE (23:15)
[2021-09-19] MEDS ORDERED: FAMOTIDINE 20 MG/2 ML VIAL IVP ONE (23:15)
--- NOTE | 2021-09-20 01:06 | RAD ---
STUDY: US ABDOMEN LIMITED INDICATION: Right upper quadrant/epigastric abdominal pain. COMPARISON: None. TECHNIQUE: Limited abdominal ultrasound targeted at the right upper quadrant. Findings: Distended gallbladder containing gallstones. Wall thickness is measured at around 0.3 cm. Relative hy poattenuation of the liver parenchyma adjacent to the gallbladder could be from fatty sparing in the setting of background hepatic steatosis. No sonographic Ma's sign was reported. Nondilated common duct at just under 0.5 cm. Poorly visualized pancreas on account of bowel gas. The liver is measured at 17.2 cm longitudinal. Increased hepatic parenchymal echogenicity. The right kidney is normal in size and echogenicity. No hydronephrosis. Patent main portal vein with hepatopedal flow. Nonaneurysmal abdominal aorta. Unremarkable IVC at the liver. Impression: 1. Distended gallbladder with gallstones. Upper limits of normal wall thickness but no sonographic M urphy's sign was observed. The findings are equivocal for cholecystitis. Consider a HIDA scan if ther e is further concern clinically. Nondilated common duct. 2. Hepatic steatosis. Probable fatty sparing adjacent to the gallbladder as opposed to pericholecyst ic edema. 3. Unremarkable right kidney and evaluated vasculature. Poorly assessed pancreas. Electronically signed by: MICK BENNETT MD (09/20/2021 1:04 AM) [facility]
[2021-09-20 01:33] LABS: AMORPHOUS SEDIMENT,UR PRESENT /HPF; BACTERIA,URINE MANY /HPF (0-FEW); RBC,URINE 0 /HPF (0-2)
[2021-09-20] MEDS ORDERED: ONDANSETRON PF 4 MG/2 ML VIAL. IVP ONE (02:00)
[2021-09-20] MEDS ORDERED: MORPHINE SULFATE 4 MG/ML INJ. IVP ONE (02:00)
[2021-09-20] MEDS ORDERED: HYDR-2759 PO (02:36)
[2021-09-20 03:14] VITALS: BP 161/90
[2021-09-20 04:06] LABS: HYPOCHROMIA MARKED; PLT ESTIMATE ADEQUATE (ADEQUATE); POLYCHROMASIA SLIGHT
[2021-09-20 04:07] LABS: ANISOCYTOSIS SLIGHT; MICROCYTOSIS MARKED
--- NOTE | 2021-09-20 06:54 | EKG ---
[facility] [address] [place] [address] Test Date: 2021-09-20 Test Time: 01:25:04 Pat Name: MEREDITH MERRITT Department: Room: Gender: F [employer]: : 1975 Requested By: MAIKEL BERNAL Order Number: [id number] Reading MD: Vic Lopez Measurements Intervals [place] Rate: 68 P: 22 WV: 116 QRS: -12 QRSD: 86 T: 38 QT: 388 QTc: 417 Interpretive Statements SINUS RHYTHM LEFTWARD AXIS OTHERWISE NORMAL ECG Electronically Signed On 09-20-2021 8:51:07 CDT by Vic Lopez
[2021-09-29] MEDS ORDERED: FLUT9.9S NS (13:37)
[2021-09-29] MEDS ORDERED: FERR325T14 PO (13:37)
[2021-09-29] MEDS ORDERED: CHOL5000 PO (13:37)
[2021-09-29] MEDS ORDERED: LEVO75TA76 PO (13:37)
[2021-10-01] MEDS ORDERED: OXYC-325 PO (11:51)
== END 2021-09-20 03:05 | disposition home or self-care (01) ==
LOC: ER 21:58
DX: K80.50 Calculus of bile duct without cholangitis or cholecystitis without obstruction (principal); E03.9 Hypothyroidism, unspecified; Z87.891 Personal history of nicotine dependence; Z98.51 Tubal ligation status; Z88.0 Allergy status to penicillin; Z91.040 Latex allergy status; Z91.011 Allergy to milk products
CPT/HCPCS: 36415; 71045; 76705; 80053; 81001; 83690; 83735; 84484; 85025; 87086; 93005; 96374; 96375; 99285; J2270; J2405; J3490

== ENCOUNTER → 2021-09-29 | Outpatient (CLI) | payer OTHER ==
[2021-09-20 03:14] VITALS: BP 161/90
[~2021-09-29] MED LIST changes: +CHOL5000 PO; +FERR325T14 PO; +FLUT9.9S NS; +HYDR-2759 PO; +LEVO75TA76 PO; +OXYC-325 PO
== END ==
LOC: LAB 13:06
PROVIDERS: ATTEND Surgery
DX: Z01.812 Encounter for preprocedural laboratory examination (principal); Z20.822 Contact with and (suspected) exposure to COVID-19
CPT/HCPCS: U0003

== ENCOUNTER 2021-10-01 09:19 | Day surgery (SDC) | payer OTHER ==
[~2021-10-01] VITALS: Ht 157.5 cm; Wt 99.5 kg
[~2021-10-01 09:19] MED LIST changes: +HYDROmorphone 2 MG/ML INJ. IVP PRN; +IV RINGERS,LACTATED 1000ML 1,000 ML IV SCH; +MORPHINE SULFATE 2 MG/ML INJ. IVP PRN; -OXYC-325 PO; +fentaNYL PF VIAL 100 MCG/2 ML VIAL IVP PRN
[2021-10-01] MEDS ORDERED: IOHEXOL 300 MG/ML 50 ML VIAL. ONE (09:20)
[2021-10-01] MEDS ORDERED: SURGICEL HEMOSTAT 4X8 EACH. ONE (09:20)
[2021-10-01] MEDS ORDERED: BUPIVACAINE-EPI 0.5% 30 ML VIAL KIT. ONE (09:20)
[2021-10-01] MEDS ORDERED: fentaNYL PF VIAL 100 MCG/2 ML VIAL ONE ×2 (09:23→11:33)
[2021-10-01] MEDS ORDERED: ROCURONIUM 50 MG/5 ML VIAL. ONE (09:23)
[2021-10-01] MEDS ORDERED: DEXAMETHASONE SOD PHOS 4 MG/ML VIAL ONE (09:24)
[2021-10-01] MEDS ORDERED: LIDOCAINE 2% PF 5 ML VIAL. ONE (09:24)
[2021-10-01] MEDS ORDERED: PROPOFOL 10 MG/ML (20ML) VIAL. IV ONE (09:24)
[2021-10-01 09:51] VITALS: BP 142/97
[2021-10-01] MEDS ORDERED: SUGAMMADEX SODIUM 200 MG/2 ML VIAL. IVP ONE (10:30)
--- NOTE | 2021-10-01 10:56 | RAD ---
EXAM: INTRAOPERATIVE CHOLANGIOGRAM. HISTORY: Gallbladder disease. Intraoperative cholangiogram with cholecystectomy. COMPARISON: None. FINDINGS: 3 fluoroscopic images are obtained intraoperatively during injection of the cystic duct rem nant after cholecystectomy. There are no filling defects to suggest retained stones. The common duct is not dilated. Fluoroscopy time 22 seconds. IMPRESSION: 1. No evidence of retained stones. Electronically signed by: Beatrice Michael MD (10/01/2021 10:54 AM) [id number]
[2021-10-01] MEDS ORDERED: PROCHLORPERAZINE 10 MG/2 ML VIAL. ONE (11:34)
[2021-10-01] MEDS: PROCHLORPERAZINE 10 MG/2 ML VIAL. IVP PRN ×2 (11:36→11:47)
[2021-10-01] MEDS: fentaNYL PF VIAL 100 MCG/2 ML VIAL IVP PRN ×2 (11:36→11:47)
--- NOTE | 2021-10-01 11:46 | PDOC4 ---
Operative Note Operative Note Operative Note: Preoperative Diagnosis: Symptomatic cholelithiasis Postoperative Diagnosis: Same Procedure: Laparoscopic cholecystectomy with intraoperative cholangiogram Surgeons: Fracisco Anesthesia: Gen. Estimated Blood Loss: 10 mL Specimen: Gallbladder to pathology Drains: None Complications: None Indications: The patient is a 46 year old female who was referred with symptomatic cholelithiasis. Surgical treatment was offered by means of a laparoscopic cholecystectomy. The risks of surgery were discussed which include bleeding, infection, bile duct injury, bile leak, pain, the potential for additional surgeries or procedures. The patient understands and would like to proceed. Description: The patient was taken to the operating room and laid supine on the operating table. General anesthesia was performed. The abdomen was prepped with ChloraPrep and draped in a standard surgical fashion. A small infraumbilical incision was made with a scalpel. The Veress needle was then inserted and a pneumoperitoneum was then created. A 5 mm trocar was then inserted and the laparoscope was introduced. In the upper midabdomen an 11 mm trocar was inserted and in the right upper quadrant two 5 mm trocar were inserted. The gallbladder was retracted cephalad. The cystic duct was dissected free from surrounding tissues. One clip was placed on the duct near the gallbladder junction. An opening was made in the duct and a cholangiocatheter placed within and secured with a clip. Using contrast dye and fluoroscopy an intraoperative cholangiogram was performed that appeared unremarkable. The clip and catheter were then withdrawn. Three clips were placed on the cystic duct and it was divided. The cystic artery was then identified, dissected free, doubly clipped and divided as well. The gallbladder was then mobilized away from the liver with cautery. The gallbladder was then placed in an endoscopic bag and extracted at the superior trocar site. The fascia there was closed with an 0 Vicryl suture and infiltrated with 0.5% marcaine. All blood and irrigation fluid was suctioned and hemostasis was good. The remaining ports were removed and the pneumoperitoneum was relieved. The skin incisions were closed using 4-0 Monocryl suture. Steri-Strips and dressings were then applied. The patient tolerated the procedure well and was sent to the recovery room in stable condition. At the end of the case all counts were correct. CHRISTINE LR MD Oct 01, 2021 11:46
[2021-10-01] MEDS ORDERED: OXYC-325 PO (11:51)
--- NOTE | 2021-10-01 11:53 | DISCH ---
DISCHARGE INSTRUCTIONS Condition on Discharge Condition on Discharge: Stable Activity After Discharge Activity Instructions for Disc: Other, see below (No lifting over 20 lbs X 2 weeks, no driving while taking pain meds) Diet after Discharge Diet after Discharge: Regular Wound Incision Care Wound/Incision Care: Other, see below (may remove bandaids tomorrow and shower, steristrips fall off on their own) Follow-Up Follow up with: Dr Lr in 2 weeks, call for appt [phone] CHRISTINE LR MD Oct 01, 2021 11:53
[2021-10-01] MEDS ORDERED: oxyCODONE/APAP 5/325 1 TAB TABLET PO ONE (12:15)
[2021-10-01 12:30] VITALS: BP 125/66
--- NOTE | 2021-10-03 19:09 | PATHOLOGY ---
[facility] Accession Number: [id number] . 01 Material submitted: . gallbladder - GALLBLADDER AND CONTENTS . 01 Clinical history: . CHOLECYSTITIS . 02 Diagnosis: Gallbladder, laparoscopic cholecystectomy: - Cholelithiasis. - Cholesterolosis. - Chronic cholecystitis. ([facility] ER:aranza; 10/03/2021) [facility] 10/03/2021 1348 Local . 02 Comment: There is no evidence of malignancy. ([facility]:aranza; 10/03/2021) . 02 Electronically signed: . Glen Camarena MD, Pathologist NPI- [id number] . 01 Gross description: . Fixative: Formalin Labeled: Gallbladder and contents Specimen received: Intact cholecystectomy Dimensions: 8.7 x 3.5 x 2.7 cm Serosa: [place]-green and smooth Lymph node: Not present Mucosa: Dark green and velvety with scant yellow stippling Average wall thickness: 0.1-0.2 cm Calculi: Yes, the gallbladder contains multiple yellow-green bosselated and roughened calculi measuring in aggregate 1.5 x 1.0 x 0.3 cm and ranging from 0.2-0.4 cm in greatest dimension Abnormalities: Previously described A1- Spa Assistant Manager body, fundus, and the cystic duct margin. ([facility]; 10/02/2021) SYC/C 10/02/2021 1055 Local . 02 Pathologist provided ICD-10: K80.10, K82.4 . 02 CPT . 480731 Specimen Comment: A courtesy copy of this report has been sent to [phone] Specimen Comment: Report sent to Performed at: 01 [facility] [address] [place] [address] [address], [place], [place] [id number] MD Jarett Gonzalez MD Phone: [phone] Performed at: [address] [id number] MD Glen Camarena MD Phone: [phone]
== END 2021-10-01 12:59 | disposition home or self-care (01) ==
LOC: SURG 09:19
PROVIDERS: ATTEND Surgery
DX: K80.10 Calculus of gallbladder with chronic cholecystitis without obstruction (principal); E66.9 Obesity, unspecified; E11.9 Type 2 diabetes mellitus without complications; E03.9 Hypothyroidism, unspecified; M19.90 Unspecified osteoarthritis, unspecified site; J45.909 Unspecified asthma, uncomplicated; F32.9 Major depressive disorder, single episode, unspecified; Z79.899 Other long term (current) drug therapy; Z88.0 Allergy status to penicillin; Z88.1 Allergy status to other antibiotic agents; Z91.040 Latex allergy status; Z88.8 Allergy status to other drugs, medicaments and biological substances; Z98.890 Other specified postprocedural states
CPT/HCPCS: 47563; 74300; 81025; 88304; A4213; A4364; A4930; A6219; C1887; J0780; J1100; J1956; J2704; J3010; J3490; Q9967; A4452; A4657